=== PATIENT | male | born 1935 | race Caucasian/White ===

== ENCOUNTER 2023-07-16 13:05 | Observation (INO) ==
[2023-07-16] MEDS ORDERED: OPTIRAY 320 125ml IV ONE (13:12)
[2023-07-16] MEDS ORDERED: cefTRIAXone SODIUM 2,000 MG/50 ML BAG IV STA (13:19)
--- NOTE | 2023-07-16 13:22 | Emergency Department Note ---
Impression & Plan Hypoxia, Respiratory syncytial virus (RSV), Elevated troponin ED Provider Note NAME: GAMALIEL BROWN AGE: 87 SEX: M : 1935 ARRIVES VIA: Ambulance INFORMANT: Patient ED PROVIDER(S): Johnny Mercado DO CHIEF COMPLAINT: fall HPI: Patient is an 87-year-old male who presents to the ER following a mechanical fall. He went into the bathroom and he notes he was very weak and he just fell down. He did hit his head. He denies any loss consciousness. EMS was called, per EMS he was brought in as he was slightly confused and stroke alert was called. He does take Eliquis. He denies any headache or change in vision. No chest pain or shortness of breath. He does admit to a cough. No dysuria, urgency, or frequency. He denies any weakness or numbness in the arms or legs but notes he feels weak all over. He has been unable to get out of bed for the past 2 days as he felt so weak. ADDITIONAL HISTORY OBTAINED: Per HPI Chronic Medical/Social Conditions Affecting Care: Per HPI PAST MEDICAL HISTORY:See Below PAST SURGICAL HISTORY:See Below FAMILY HISTORY:See Below SOCIAL HISTORY:See Below HOME MEDICATIONS:See Below ALLERGIES:See Below VITALS:See Below PHYSICAL EXAMINATION: GENERAL: alert, well appearing, well nourished, no distress, non-toxic HEAD: normal cephalic, atraumatic EYE EXAM: normal conjunctiva, PERRL and EOM's grossly intact OROPHARYNX: no exudate, no erythema, lips, buccal mucosa, and tongue normal and mucous membranes are moist EARS: TMs clear b/l NECK: supple, no nuchal rigidity, no adenopathy, non-tender CHEST: stable to compression anteriorly and posteriorly LUNGS: clear to auscultation. Normal chest wall mechanics HEART: no murmurs, S1 normal and S2 normal ABDOMEN: abdomen soft, non-tender, normo-active bowel sounds, no masses, no rebound or guarding. PELVIS: stable to compression anteriorly and posteriorly BACK: Back is symmetrical on inspection and there is no deformity, no midline tenderness, no CVA tenderness. UPPER EXTREMITIES: full active and passive range of motion of all joints without tenderness to palpation LOWER EXTREMITIES: full active and passive range of motion of all joints without tenderness to palpation NEURO EXAM: Normal sensorium, cranial nerves II-XII intact, normal speech, no weakness of arms, no weakness of legs. GCS: 15. MEDICAL DECISION MAKING: Patient is an 87-year-old male who presents ER for the above-stated complaint. IV was established blood work is obtained. Stroke alert was called prior to arrival due to a fall and confusion but upon arrival he is completely oriented to person place or time. No focal deficit. Labs shows no significant leukocytosis. Mild anemia 12.7. Per report from EMS he was found to be febrile at 101. INR 1.2. He is taking Eliquis. BMP was unremarkable with exception of creatinine 1.5. He was hypoxic as well at 83 to 85% on room air. Placed on 3 L nasal cannula and titrated up. He was found to be RSV positive. Troponin was elevated at 50. Do favor this secondary to the hypoxia. CT angios of the head and neck were unremarkable. Questionable right basilar infiltrate patient was covered with IV antibiotics. Updated at bedside. Discussed the case with the hospitalist for further evaluation management treatment. Consults/Care Managements Discussions: Per [facility] Triage Nursing notes reviewed. Limited review of prior medical records performed Vital Signs: reviewed and remarkable for no significant abnormalities Differential diagnosis: Infection, dehydration, metabolic abnormality, hypo/hyperglycemia, electrolyte disturbance, anemia, hypoxia, cardiac sources, intracerebral event, toxicologic, neurologic, as well as other pathologies. ER treatment provided: See below Diagnostics interpreted by me include EKG and cardiac monitoring as listed below: -Cardiac Monitoring: An order was placed for continuous cardiac monitoring. The monitor shows a rate of 82 with sinus rhythm. -ECG: [none] -Laboratory studies:Interpreted by me as stated above in MDM and shown below. Imaging studies: Xrays: As interpreted by me: Portable AP upright 1 view of the chest shows no focal infiltrate CTs show: CT angio of the head and neck were negative per radiology Procedures:none Critical Care: I have personally spent 35 minutes of critical care time in the direct management of this patient. This includes bedside care, interpretation of diagnostic studies, and testing, discussion with consultants, patient, and family members, and other required patient management activities. This 35 minutes is in excess of all separately billable procedures. Past Med/Surg History Medical History (Updated 07/16/23 @ 16:37 by Johnny Mercado DO) Generalized weakness Social History Smoking Status: Former smoker Preferred Language: Vietnamese Feels Safe at Home: Yes Allergies Allergies Allergy/AdvReac Type Severity Reaction Status Date / Time Unable to Assess Allergy Unverified 07/16/23 14:10 Home Meds Home Medications Medication Instructions Recorded Confirmed apixaban 2.5 mg tablet (Eliquis) 0 mg PO BID 07/16/23 07/16/23 furosemide 20 mg tablet 20 mg PO DAILY 07/16/23 07/16/23 meloxicam 7.5 mg tablet 7.5 mg PO DAILY 07/16/23 07/16/23 metoprolol succinate 25 mg 25 mg PO DAILY 07/16/23 07/16/23 tablet,extended release 24 hr potassium chloride 20 mEq 20 meq PO DAILY 07/16/23 07/16/23 tablet,extended release(part/cryst) Results & Data (ED) Vital Signs Vital Signs - 24 hr 07/16/23 13:39 07/16/23 13:39 07/16/23 13:39 Temperature 37.3 C 37.3 C Temperature Source Oral Oral Pulse Rate 89 Respiratory Rate 16 Blood Pressure 186/111 H Blood Pressure Mean 136 Pulse Oximetry 98 Oxygen Delivery Method Nasal Cannula Nasal Cannula Oxygen Flow Rate 4 4 Sepsis Recent Fever Within 48 Hours Yes Sepsis New/Unexplained Change in Mental Status N/A Sepsis Action Taken by Nursing No Action Required 07/16/23 14:34 Temperature Temperature Source Pulse Rate Respiratory Rate Blood Pressure Blood Pressure Mean Pulse Oximetry 94 Oxygen Delivery Method Room Air Oxygen Flow Rate Sepsis Recent Fever Within 48 Hours Sepsis New/Unexplained Change in Mental Status Sepsis Action Taken by Nursing Laboratory Data 07/16/23 13:22 07/16/23 13:22 Lab Results 07/16/23 07/16/23 07/16/23 Range/Units 13:22 13:29 13:33 WBC 8.46 (4.8-10.8) K/ul RBC 3.84 L (4.70-6.10) M/uL Hgb 12.7 L (14.0-18.0) g/dl POC Hgb (14.0-18.0) g/dl Hct 38.1 L (42.0-52.0) % POC Hct (42-52) % MCV 99.2 (80.0-100.0) fL MCH 33.1 (25.0-34.0) pg MCHC 33.3 (32.0-36.0) g/dL RDW Std Deviation 48.6 H (36.4-46.3) fL RDW Coeff of Simone 13.3 (11.5-14.5) % Plt Count 132 (130-400) K/uL MPV 10.0 (9.4-12.4) fL Immature Gran % (Auto) 0.4 % Neut % (Auto) 89.8 % Lymph % (Auto) 1.4 % [place] % (Auto) 8.2 % Eos % (Auto) 0.0 % Baso % (Auto) 0.2 % Neut # (Auto) 7.60 H (1.40-6.50) K/uL Lymph # (Auto) 0.12 L (1.20-3.40) K/uL [place] # (Auto) 0.69 H (0.11-0.59) K/uL Eos # (Auto) 0.00 (0.00-0.50) K/uL Baso # (Auto) 0.02 (0.00-0.20) K/uL Immature Gran # (Auto) 0.03 (0.01-0.20) K/uL PT 13.2 H (9.0-12.0) Seconds INR 1.2 H (0.9-1.1) APTT 29 (21-31) Seconds PTT Ratio 1.0 POC Sodium (135-144) mmol/L Sodium 136 (136-145) mmol/L POC Potassium (3.3-5.0) mmol/L Potassium 4.1 (3.5-5.1) mmol/L POC Chloride (101-112) mmol/L Chloride 107 (98-107) mmol/L Carbon Dioxide 21 (21-32) mmol/L POC Total CO2 (24-31) mmol/L Anion Gap 8 (3-11) POC Anion Gap (16-25) mmol/L POC BUN (7-18) mg/dl BUN 40 H (6-23) mg/dl Creatinine 1.57 H (0.6-1.4) mg/dl POC Creatinine (0.6-1.3) mg/dl Est Cr Clr Drug Dosing 33.0 ml/min Est GFR ( Amer) 45.3 ml/min Est GFR (Non-Af Amer) 39.1 ml/min BUN/Creatinine Ratio 25.5 H (10-20) Glucose 109 H (70-99(Fasting)) mg/dl POC Glucose (other) (70-99) mg/dl Lactate 1.5 (0.4-2.0) mmol/L Calcium 8.3 L (8.6-10.3) mg/dl POC Ioniz Calcium Talia (1.12-1.32) mmol/l Magnesium 1.7 (1.7-2.4) mg/dl Total Bilirubin 1.0 (0.2-1.0) mg/dl AST 29 (13-39) U/L ALT 18 (7-52) U/L Alkaline Phosphatase 114 H (34-104) U/L Troponin I High Sens 49.3 H (0-20) pg/ml Total Protein 5.7 L (6.0-8.3) gm/dl Albumin 3.7 (3.4-5.0) gm/dl Globulin 2.0 L (2.5-4.0) gm/dl Albumin/Globulin Ratio 1.9 (0.9-2) Adenovirus (PCR) Not Detected (NotDetected) B. pertussis DNA (PCR) Not Detected (NotDetected) B.parapertussis DNA PCR Not Detected (NotDetected) C. pneumoniae DNA (PCR) Not Detected (NotDetected) Coronavirus OC43 (PCR) Not Detected (NotDetected) Coronavirus HKU1 (PCR) Not Detected (NotDetected) Coronavirus 229E (PCR) Not Detected (NotDetected) SARS-CoV-2 (PCR) Not Detected (NotDetected) Coronavirus NL63 (PCR) Not Detected (NotDetected) Human Metapneumovir PCR Not Detected (NotDetected) Influenza Type A (PCR) Not Detected (NotDetected) Influenza Type B (PCR) Not Detected (NotDetected) M. pneumoniae (PCR) Not Detected (NotDetected) Parainfluenza 1 (PCR) Not Detected (NotDetected) Parainfluenza 2 (PCR) Not Detected (NotDetected) Parainfluenza 3 (PCR) Not Detected (NotDetected) Parainfluenza 4 (PCR) Not Detected (NotDetected) RSV (PCR) DETECTED A* (NotDetected) Entero/Rhino (PCR) Not Detected (NotDetected) 07/16/23 Range/Units 13:36 WBC (4.8-10.8) K/ul RBC (4.70-6.10) M/uL Hgb (14.0-18.0) g/dl POC Hgb 12.6 L (14.0-18.0) g/dl Hct (42.0-52.0) % POC Hct 37 L (42-52) % MCV (80.0-100.0) fL MCH (25.0-34.0) pg MCHC (32.0-36.0) g/dL RDW Std Deviation (36.4-46.3) fL RDW Coeff of Simone (11.5-14.5) % Plt Count (130-400) K/uL MPV (9.4-12.4) fL Immature Gran % (Auto) % Neut % (Auto) % Lymph % (Auto) % [place] % (Auto) % Eos % (Auto) % Baso % (Auto) % Neut # (Auto) (1.40-6.50) K/uL Lymph # (Auto) (1.20-3.40) K/uL [place] # (Auto) (0.11-0.59) K/uL Eos # (Auto) (0.00-0.50) K/uL Baso # (Auto) (0.00-0.20) K/uL Immature Gran # (Auto) (0.01-0.20) K/uL PT (9.0-12.0) Seconds INR (0.9-1.1) APTT (21-31) Seconds PTT Ratio POC Sodium 138 (135-144) mmol/L Sodium (136-145) mmol/L POC Potassium 4.1 (3.3-5.0) mmol/L Potassium (3.5-5.1) mmol/L POC Chloride 105 (101-112) mmol/L Chloride (98-107) mmol/L Carbon Dioxide (21-32) mmol/L POC Total CO2 22 L (24-31) mmol/L Anion Gap (3-11) POC Anion Gap 16.0 (16-25) mmol/L POC BUN 36 H (7-18) mg/dl BUN (6-23) mg/dl Creatinine (0.6-1.4) mg/dl POC Creatinine 1.6 H (0.6-1.3) mg/dl Est Cr Clr Drug Dosing ml/min Est GFR ( Amer) ml/min Est GFR (Non-Af Amer) ml/min BUN/Creatinine Ratio (10-20) Glucose (70-99(Fasting)) mg/dl POC Glucose (other) 105 H (70-99) mg/dl Lactate (0.4-2.0) mmol/L Calcium (8.6-10.3) mg/dl POC Ioniz Calcium Talia 1.03 L (1.12-1.32) mmol/l Magnesium (1.7-2.4) mg/dl Total Bilirubin (0.2-1.0) mg/dl AST (13-39) U/L ALT (7-52) U/L Alkaline Phosphatase (34-104) U/L Troponin I High Sens (0-20) pg/ml Total Protein (6.0-8.3) gm/dl Albumin (3.4-5.0) gm/dl Globulin (2.5-4.0) gm/dl Albumin/Globulin Ratio (0.9-2) Adenovirus (PCR) (NotDetected) B. pertussis DNA (PCR) (NotDetected) B.parapertussis DNA PCR (NotDetected) C. pneumoniae DNA (PCR) (NotDetected) Coronavirus OC43 (PCR) (NotDetected) Coronavirus HKU1 (PCR) (NotDetected) Coronavirus 229E (PCR) (NotDetected) SARS-CoV-2 (PCR) (NotDetected) Coronavirus NL63 (PCR) (NotDetected) Human Metapneumovir PCR (NotDetected) Influenza Type A (PCR) (NotDetected) Influenza Type B (PCR) (NotDetected) M. pneumoniae (PCR) (NotDetected) Parainfluenza 1 (PCR) (NotDetected) Parainfluenza 2 (PCR) (NotDetected) Parainfluenza 3 (PCR) (NotDetected) Parainfluenza 4 (PCR) (NotDetected) RSV (PCR) (NotDetected) Entero/Rhino (PCR) (NotDetected) Administered Medications Discontinued Medications Sodium Chloride (Nss) 1,000 mls @ 999 mls/hr IV .[id number] RENAE Stop: 07/16/23 15:00 Last Infusion: 07/16/23 16:20 Dose: Infused Documented By: Admin: 07/16/23 14:02 Dose: 999 mls/hr Documented By: Infusion: 07/16/23 14:02 Dose: Infused Documented By: Admin: 07/16/23 13:56 Dose: 999 mls/hr Documented By: BRAYDEN Ceftriaxone Sodium (Rocephin) 2,000 mg in 50 mls @ 100 mls/hr IV NOW STA Stop: 07/16/23 13:48 Last Infusion: 07/16/23 16:20 Dose: Infused Documented By: KTSydni Admin: 07/16/23 13:56 Dose: 100 mls/hr Documented By: BRAYDEN Azithromycin 500 mg/ Dextrose 255 mls @ 127.5 mls/hr IV NOW STA Stop: 07/16/23 15:55 Last Infusion: 07/16/23 16:20 Dose: Infused Documented By: Admin: 07/16/23 14:13 Dose: 127.5 mls/hr Documented By: BRAYDEN Ioversol (Optiray 320 125ml) 117 ml IV ONCE ONE Stop: 07/16/23 13:13 Last Admin: 07/16/23 13:13 Dose: 117 ml Documented By: ISABELA Imaging Data Radiologist's Impression: Chest X-Ray 07/16/23 12:48 XR chest 1V portable HISTORY: 87 years-old Male neuro deficit, acute stroke suspected acute strokelike symptoms with chest pain COMPARISON: None TECHNIQUE: AP view of the chest FINDINGS: Cardiac silhouette is enlarged. Single lead left subclavian pacer. No pneumothorax, or pleural effusion. Pulmonary vascular congestion with subsegmental right basilar opacities. Bones appear grossly intact. IMPRESSION: 1. Cardiomegaly with pulmonary vascular congestion. 2. Mild right basilar opacities favor atelectasis. ACT 112: Negative or not required by law. The above report was generated using voice recognition software. It may contain grammatical, syntax or spelling errors. Electronically signed by: Brennon Holguin M.D. 07/16/2023 1:[address] 07/16/23 12:48 CT angio head w con, CT angio neck with con, CT head/brain wo con CLINICAL HISTORY: 87 years-old Male with neuro deficit, acute stroke suspected. Acute stroke like symptoms COMPARISON STUDY: None TECHNIQUE: Unenhanced axial CT scan of the brain is performed. Subsequently, following the IV administration of 117 cc of Optiray, CT angiogram of the head and neck was performed from the aortic arch to the skull apex. Images are reviewed in the axial, sagittal, and coronal planes. 3-D MIPS images are created and assessed. IV contrast was administered without complication. All measurements were obtained according to NASCET criteria. A dose lowering technique was utilized adhering to the principles of ALARA. FINDINGS: Motion degraded exam. CT BRAIN: There is no acute intracranial hemorrhage, midline shift, hydrocephalus, intracranial mass, territorial ischemia or abnormal extra-axial collections. No abnormal intra-axial or extra-axial enhancement. Involutional changes with white matter hypodensities suggestive of chronic microvascular ischemic disease . Mastoid air cells and middle ear cavities are clear. No calvarial fracture. Mild mucosal thickening of the paranasal sinuses. CT ANGIOGRAM OF THE HEAD AND NECK: Left subclavian pacer. Three-vessel morphology of the thoracic aortic arch. Patency of the innominate and image subclavian arteries. The common carotid arteries are patent. Atherosclerotic plaque of the carotid bulbs without significant stenosis. The internal carotid arteries are widely patent. The bilateral anterior and middle cerebral arteries are also patent. The vertebrobasilar system and posterior cerebral arteries are widely patent. There is a mild multifocal luminal narrowing of the intracranial arteries. There is no aneurysm, high-grade stenosis, or proximal branch occlusion identified. Dural sinuses appear patent. Prior bilateral lens repair. The lung apices are generally clear without pneumothorax. Heterogeneous thyroid. Multilevel changes of the cervical spine. Periapical cystic changes of the mandible. The patient has numerous missing teeth. IMPRESSION: 1. No acute intracranial abnormality identified. 2. Atherosclerosis without aneurysm, high-grade stenosis, dissection or arterial occlusion identified. ACT 112: Negative or not required by law. The above report was generated using voice recognition software. It may contain grammatical, syntax or spelling errors. Electronically signed by: Brennon Holguin M.D. 07/16/2023 1:31 PM Head CTA 07/16/23 12:48 CT angio head w con, CT angio neck with con, CT head/brain wo con CLINICAL HISTORY: 87 years-old Male with neuro deficit, acute stroke suspected. Acute stroke like symptoms COMPARISON STUDY: None TECHNIQUE: Unenhanced axial CT scan of the brain is performed. Subsequently, following the IV administration of 117 cc of Optiray, CT angiogram of the head and neck was performed from the aortic arch to the skull apex. Images are reviewed in the axial, sagittal, and coronal planes. 3-D MIPS images are created and assessed. IV contrast was administered without complication. All measurements were obtained according to NASCET criteria. A dose lowering technique was utilized adhering to the principles of ALARA. FINDINGS: Motion degraded exam. CT BRAIN: There is no acute intracranial hemorrhage, midline shift, hydrocephalus, intracranial mass, territorial ischemia or abnormal extra-axial collections. No abnormal intra-axial or extra-axial enhancement. Involutional changes with white matter hypodensities suggestive of chronic microvascular ischemic disease . Mastoid air cells and middle ear cavities are clear. No calvarial fracture. Mild mucosal thickening of the paranasal sinuses. CT ANGIOGRAM OF THE HEAD AND NECK: Left subclavian pacer. Three-vessel morphology of the thoracic aortic arch. Patency of the innominate and image subclavian arteries. The common carotid arteries are patent. Atherosclerotic plaque of the carotid bulbs without significant stenosis. The internal carotid arteries are widely patent. The bilateral anterior and middle cerebral arteries are also patent. The vertebrobasilar system and posterior cerebral arteries are widely patent. There is a mild multifocal luminal narrowing of the intracranial arteries. There is no aneurysm, high-grade stenosis, or proximal branch occlusion identified. Dural sinuses appear patent. Prior bilateral lens repair. The lung apices are generally clear without pneumothorax. Heterogeneous thyroid. Multilevel changes of the cervical spine. Periapical cystic changes of the mandible. The patient has numerous missing teeth. IMPRESSION: 1. No acute intracranial abnormality identified. 2. Atherosclerosis without aneurysm, high-grade stenosis, dissection or arterial occlusion identified. ACT 112: Negative or not required by law. The above report was generated using voice recognition software. It may contain grammatical, syntax or spelling errors. Electronically signed by: Brennon Holguin M.D. 07/16/2023 1:31 PM Neck CTA 07/16/23 12:48 CT angio head w con, CT angio neck with con, CT head/brain wo con CLINICAL HISTORY: 87 years-old Male with neuro deficit, acute stroke suspected. Acute stroke like symptoms COMPARISON STUDY: None TECHNIQUE: Unenhanced axial CT scan of the brain is performed. Subsequently, following the IV administration of 117 cc of Optiray, CT angiogram of the head and neck was performed from the aortic arch to the skull apex. Images are reviewed in the axial, sagittal, and coronal planes. 3-D MIPS images are created and assessed. IV contrast was administered without complication. All measurements were obtained according to NASCET criteria. A dose lowering technique was utilized adhering to the principles of ALARA. FINDINGS: Motion degraded exam. CT BRAIN: There is no acute intracranial hemorrhage, midline shift, hydrocephalus, intracranial mass, territorial ischemia or abnormal extra-axial collections. No abnormal intra-axial or extra-axial enhancement. Involutional changes with white matter hypodensities suggestive of chronic microvascular ischemic disease . Mastoid air cells and middle ear cavities are clear. No calvarial fracture. Mild mucosal thickening of the paranasal sinuses. CT ANGIOGRAM OF THE HEAD AND NECK: Left subclavian pacer. Three-vessel morphology of the thoracic aortic arch. Patency of the innominate and image subclavian arteries. The common carotid arteries are patent. Atherosclerotic plaque of the carotid bulbs without significant stenosis. The internal carotid arteries are widely patent. The bilateral anterior and middle cerebral arteries are also patent. The vertebrobasilar system and posterior cerebral arteries are widely patent. There is a mild multifocal luminal narrowing of the intracranial arteries. There is no aneurysm, high-grade stenosis, or proximal branch occlusion identified. Dural sinuses appear patent. Prior bilateral lens repair. The lung apices are generally clear without pneumothorax. Heterogeneous thyroid. Multilevel changes of the cervical spine. Periapical cystic changes of the mandible. The patient has numerous missing teeth. IMPRESSION: 1. No acute intracranial abnormality identified. 2. Atherosclerosis without aneurysm, high-grade stenosis, dissection or arterial occlusion identified. ACT 112: Negative or not required by law. The above report was generated using voice recognition software. It may contain grammatical, syntax or spelling errors. Electronically signed by: Brennon Holguin M.D. 07/16/2023 1:31 PM Discharge Plan Visit Data Chief Complaint: Stroke Alert ED Provider: Johnny Mercado Discharge Problem: Hypoxia, Respiratory syncytial virus (RSV), Elevated troponin Forms Stand Alone Forms: My [facility] Prescriptions Prescriptions: No Action meloxicam 7.5 mg tablet 7.5 mg PO DAILY potassium chloride 20 mEq tablet,ER particles/crystals 20 meq PO DAILY furosemide 20 mg tablet 20 mg PO DAILY metoprolol succinate 25 mg tablet extended release 24 hr 25 mg PO DAILY Eliquis 2.5 mg tablet 0 mg PO BID Rx Instructions: Per Pharmacist w/ preferred pharmacy, patient last filled this on 05/20/23 x30 day supply. No discontinue notes from PCP. Original directions: 2.5mg by mouth twice daily Referrals Referrals: PCP,NO [Physician] -
--- NOTE | 2023-07-16 13:34 | CT Scan Report ---
CT angio head w con, CT angio neck with con, CT head/brain wo con CLINICAL HISTORY: 87 years-old Male with neuro deficit, acute stroke suspected. Acute stroke like symptoms COMPARISON STUDY: None TECHNIQUE: Unenhanced axial CT scan of the brain is performed. Subsequently, following the IV adminis tration of 117 cc of Optiray, CT angiogram of the head and neck was performed from the aortic arch to the skull apex. Images are reviewed in the axial, sagittal, and coronal planes. 3-D MIPS images are created and assessed. IV contrast was administered without complication. All measurements were obtain ed according to NASCET criteria. A dose lowering technique was utilized adhering to the principles of ALARA. FINDINGS: Motion degraded exam. CT BRAIN: There is no acute intracranial hemorrhage, midline shift, hydrocephalus, intracranial mass, territori al ischemia or abnormal extra-axial collections. No abnormal intra-axial or extra-axial enhancement. Involutional changes with white matter hypodensities suggestive of chronic microvascular ischemic dis ease . Mastoid air cells and middle ear cavities are clear. No calvarial fracture. Mild mucosal thick ening of the paranasal sinuses. CT ANGIOGRAM OF THE HEAD AND NECK: Left subclavian pacer. Three-vessel morphology of the thoracic aortic arch. Patency of the innominate and image subclavian arteries. The common carotid arteries are patent. Atherosclerotic plaque of the carotid bulbs without significant stenosis. The internal carotid arteries are widely patent. The mei ateral anterior and middle cerebral arteries are also patent. The vertebrobasilar system and posterio r cerebral arteries are widely patent. There is a mild multifocal luminal narrowing of the intracrani al arteries. There is no aneurysm, high-grade stenosis, or proximal branch occlusion identified. Dura l sinuses appear patent. Prior bilateral lens repair. The lung apices are generally clear without pneumothorax. Heterogeneous thyroid. Multilevel changes of the cervical spine. Periapical cystic changes of the mandible. The pat ient has numerous missing teeth. IMPRESSION: 1. No acute intracranial abnormality identified. 2. Atherosclerosis without aneurysm, high-grade stenosis, dissection or arterial occlusion identified . ACT 112: Negative or not required by law. The above report was generated using voice recognition software. It may contain grammatical, syntax o r spelling errors. Electronically signed by: Brennon Holguin M.D. 07/16/2023 1:31 PM
[2023-07-16 13:40] LABS: Basophils # (auto) 0.02 K/uL (0.00-0.20); Basophils % (auto) 0.2 %; Hematocrit (blood only) 38.1 % (42.0-52.0); Hemoglobin 12.7 g/dl (14.0-18.0); Immature Granulocytes # (auto) 0.03 K/uL (0.01-0.20); Immature Granulocytes % (auto) 0.4 %; Lymphocytes # (auto) 0.12 K/uL (1.20-3.40); Lymphocytes % (auto) 1.4 %; Mean Corpuscular Hemoglobin 33.1 pg (25.0-34.0); Mean Corpuscular Hgb Conc 33.3 g/dL (32.0-36.0); Mean Corpuscular Volume 99.2 fL (80.0-100.0); Monocytes # (auto) 0.69 K/uL (0.11-0.59); Monocytes % (auto) 8.2 %; Neutrophils % (auto) 89.8 %; Platelet Count 132 K/uL (130-400); RDW Coefficient of Variation 13.3 % (11.5-14.5); RDW Standard Deviation 48.6 fL (36.4-46.3); Red Blood Count 3.84 M/uL (4.70-6.10); White Blood Count 8.46 K/ul (4.8-10.8)
[2023-07-16 13:48] LABS: iSTAT Creatinine 1.6 mg/dl (0.6-1.3); iSTAT Hemoglobin 12.6 g/dl (14.0-18.0); iSTAT Ionized Calcium 1.03 mmol/l (1.12-1.32); iSTAT Potassium 4.1 mmol/L (3.3-5.0)
[2023-07-16 13:52] LABS: INR 1.2 (0.9-1.1); Partial Thromboplastin Time 29 Seconds (21-31); Prothrombin Time 13.2 Seconds (9.0-12.0)
--- NOTE | 2023-07-16 13:52 | XRay Report ---
XR chest 1V portable HISTORY: 87 years-old Male neuro deficit, acute stroke suspected acute strokelike symptoms with ches t pain COMPARISON: None TECHNIQUE: AP view of the chest FINDINGS: Cardiac silhouette is enlarged. Single lead left subclavian pacer. No pneumothorax, or pleural effusi on. Pulmonary vascular congestion with subsegmental right basilar opacities. Bones appear grossly int act. IMPRESSION: 1. Cardiomegaly with pulmonary vascular congestion. 2. Mild right basilar opacities favor atelectasis. ACT 112: Negative or not required by law. The above report was generated using voice recognition software. It may contain grammatical, syntax o r spelling errors. Electronically signed by: Brennon Holguin M.D. 07/16/2023 1:51 PM
[2023-07-16] MEDS ORDERED: AZITHROMYCIN 500 MG in DEXTROSE 5% 250 ML IV STA (13:56)
[2023-07-16] MEDS: SODIUM CHLORIDE 0.9% 1,000 ML IV SCH ×2 (13:56→14:02)
[2023-07-16 14:01] LABS: Albumin Globulin Ratio 1.9 (0.9-2); Albumin Level 3.7 gm/dl (3.4-5.0); BUN Creatinine Ratio 25.5 (10-20); Calcium 8.3 mg/dl (8.6-10.3); Est GFR (African American) 45.3 ml/min; Est GFR (Non-African American) 39.1 ml/min; Magnesium 1.7 mg/dl (1.7-2.4); Potassium 4.1 mmol/L (3.5-5.1); Total Protein 5.7 gm/dl (6.0-8.3)
[2023-07-16 14:08] LABS: Troponin I High Sensitivity 49.3 pg/ml (0-20)
[2023-07-16 15:05] LABS: Adenovirus PCR Not Detected (NotDetected); Bordetella parapertussis PCR Not Detected (NotDetected); Bordetella pertussis PCR Not Detected (NotDetected); Chlamydia pneumoniae PCR Not Detected (NotDetected); Coronavirus 229E PCR Not Detected (NotDetected); Coronavirus CoV-2 (COVID19)PCR Not Detected (NotDetected); Coronavirus HKU1 PCR Not Detected (NotDetected); Coronavirus NL63 PCR Not Detected (NotDetected); Coronavirus OC43PCR Not Detected (NotDetected); Human Metapneumovirus PCR Not Detected (NotDetected); Influenza A PCR Not Detected (NotDetected); Influenza B PCR Not Detected (NotDetected); Mycoplasma pneumoniae PCR Not Detected (NotDetected); Parainfluenza Virus 1 PCR Not Detected (NotDetected); Parainfluenza Virus 2 PCR Not Detected (NotDetected); Parainfluenza Virus 3 PCR Not Detected (NotDetected); Parainfluenza Virus 4 PCR Not Detected (NotDetected); Rhinovirus/Enterovirus PCR Not Detected (NotDetected)
[2023-07-16 15:24] LABS: Respiratory Syncytial VirusPCR DETECTED (NotDetected)
--- NOTE | 2023-07-16 15:46 | History & Physical Report ---
Date of Service July 16, 2023 Assessment & Plan (1) Respiratory syncytial virus (RSV): (2) Slurred speech: (3) Generalized weakness: (4) Elevated troponin: (5) Hypoxia: Plan Mr. Méndez is an 87-year-old male that presented to the ED today after his family noticed that he was having some slurred speech and altered mental status. Today he fell in the shower and hit his head on the left side. He has been progressively getting weaker and short of breath over the past few days. He has had notable cough.Chest x-ray revealed mild right opacities in the setting of suspected atelectasis. Head CT negative for SDH, ICH or midline shift. Head neck CTA revealed atherosclerosis without aneurysm, stenosis dissection or aortic occlusion. Patient tested positive for RSV. No leukocytosis, lactate 1.5, ionized calcium 1.03, calcium 8.3, mag 1.7, troponin 49.3; recheck at 53 and will continue to trend. Do not suspect that this is related to an ACS event rather ischemic demand. Additional past medical history includes HTN and A-fib. Of note this patient follows infrequently with a PCP and likely has progressive weakness and noncompliance with medications. Patient denies headache, dizziness, visual or auditory changes, chest pain, palpitations, abdominal pain or tenderness, changes in bowels, additional falls or trauma. On exam patient without wheezes however is rhonchitic throughout. Patient is AAO x 2 however is unable to discern his medical ailments. at bedside and family at bedside confirmed full CODE STATUS. No alcohol, tobacco, recreational drug use. 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 Will continue workup for stroke with MRI of the brain, dizziness with Ortho BPs, supportive treatment of RSV with IV steroids, Mucinex, sputum culture, flutter valve, incentive spirometry, gentle IV fluids. Will continue to trend troponin and obtain new baseline echo. Will obtain urinalysis as patient was having hematuria; low threshold for patient having UTI which may be a contributing cause to AMS. RSV: Hypoxia: Acute RSV + via biofire No leukocytosis Given ceftriaxone plus azithromycin in ED; no need to continue antibiotics at this time Solu-Medrol IV ordered Flutter valve and incentive spirometry ordered Mucinex ordered Check procalcitonin and magnesium Obtain blood and sputum culture AMS: Slurred Speech: Generalized weakness: acute Head CT negative for SDH, ICH or midline shift. Head neck CTA revealed atherosclerosis without aneurysm, stenosis dissection or aortic occlusion. Will obtain UA Lactate 1.5 Repeat echocardiogram Ortho BP Elevated troponin: Acute Troponin 49.3; repeat 53; continue to trend. Do not suspect ACS or other ischemic demand Atrial Fibrillation: Chronic Takes Eliquis; continue Takes Metoprolol; continue Takes Lasix; continue Disposition: PCP: unassigned Code Status: Full code VTE Prophylaxis: On Eliquis I spent a total of 87 minutes coordinating, documenting, and providing care for this patient excluding time spent in the performance of separately billed services. All of the aforementioned completed while collaborating with the assigned attending physician for a full treatment plan. Please see their addendum for further details. History of Present Illness Chief Complaint: weakness Primary Care Provider: Elijah Soni Mr. Méndez is an 87-year-old male that presented to the ED today after his family noticed that he was having some slurred speech and altered mental status. Today he fell in the shower and hit his head on the left side. He has been progressively getting weaker and short of breath over the past few days. He has had notable cough. Chest x-ray revealed mild right opacities in the setting of suspected atelectasis. Head CT negative for SDH, ICH or midline shift. Head neck CTA revealed atherosclerosis without aneurysm, stenosis dissection or aortic occlusion. Patient tested positive for RSV. No leukocytosis, lactate 1.5, ionized calcium 1.03, calcium 8.3, mag 1.7, troponin 49.3; recheck at 53 and will continue to trend. Do not suspect that this is related to an ACS event rather ischemic demand. Additional past medical history includes HTN and A-fib. Of note this patient follows infrequently with a PCP and likely has progressive weakness and noncompliance with medications. Patient denies headache, dizziness, visual or auditory changes, chest pain, palpitations, abdominal pain or tenderness, changes in bowels, additional falls or trauma. On exam patient without wheezes however is rhonchitic throughout. Patient is AAO x 2 however is unable to discern his medical ailments. at bedside and family at bedside confirmed full CODE STATUS. No alcohol, tobacco, recreational drug use. 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 Will continue workup for stroke with MRI of the brain, dizziness with Ortho BPs, supportive treatment of RSV with IV steroids, Mucinex, sputum culture, flutter valve, incentive spirometry, gentle IV fluids. Will continue to trend troponin and obtain new baseline echo. Will obtain urinalysis as patient was having hematuria; low threshold for patient having UTI which may be a contributing cause to AMS. Patient will be admitted for further evaluation and management. Please see A/P for further details Allergies Allergy/AdvReac Type Severity Reaction Status Date / Time Unable to Assess Allergy Unverified 07/16/23 14:10 Home Medications Medication Instructions Recorded Confirmed Type apixaban 2.5 mg tablet (Eliquis) 0 mg PO BID 07/16/23 07/16/23 History furosemide 20 mg tablet 20 mg PO DAILY 07/16/23 07/16/23 History meloxicam 7.5 mg tablet 7.5 mg PO DAILY 07/16/23 07/16/23 History metoprolol succinate 25 mg 25 mg PO DAILY 07/16/23 07/16/23 History tablet,extended release 24 hr potassium chloride 20 mEq 20 meq PO DAILY 07/16/23 07/16/23 History tablet,extended release(part/cryst) Past Med/Surg History Medical History (Updated 07/16/23 @ 20:46 by Bryant Wagner PA-C) Slurred speech Generalized weakness Surgical History (Updated 07/16/23 @ 20:25 by TATE Blair) No pertinent past surgical history Family History (Updated 07/16/23 @ 20:25 by TATE Blair) Other Dyslipidemia Heart disease Hypertension Social History Smoking Status: Former smoker Preferred Language: Vietnamese Feels Safe at Home: Yes Review of Systems Review of Systems: Neuro: (-) Falls, trauma, slurred speech HEENT: (-) ABDI, dizziness, dysphagia, visual or auditory changes CV: (-) CP, palpitations, swelling Resp: (-) SOB GI: (-) appetite changes, N/V/D, bowel changes : (-) urinary changes Skin: (-) rashes Psych: (-) anxiety, depression Physical Exam Physical Exam: Neuro: AAOx2, PERRLA, no aphagia, memory changes, CNII-XII grossly intact HEENT: head normocephalic, moist mucus membranes CV: S1/S2, (-) M/G/R, (-) edema, cap refill < 3 seconds Resp: Lungs CTA in all allen. On 4 LNC; rhonchitic throughout. GI: Abdomen S/NT/ND, Ax4 bowel sounds, (-) CVA tenderness Musculoskeletal: 5/5 B/L UE strength, 5/5 B/L LE strength. No gait disturbance; however, R foot deformity Skin: (-) rashes , (-) erythema (+) ecchymosis on bilateral arms. Psych: euthymic mood Results & Data Results & Data Vital Signs (Past 12 Hours) Vital Signs Temp Pulse Resp BP Pulse Ox O2 Del Method O2 Flow Rate 07/16/23 14:34 94 Room Air 07/16/23 13:39 37.3 C 07/16/23 13:39 Nasal Cannula 4 07/16/23 13:39 37.3 C 89 16 186/111 H 98 Nasal Cannula 4 Laboratory Results Short CBC 07/16/23 Range/Units 13:22 WBC 8.46 (4.8-10.8) K/ul Hgb 12.7 L (14.0-18.0) g/dl Hct 38.1 L (42.0-52.0) % Plt Count 132 (130-400) K/uL BMP 07/16/23 13:22 Sodium 136 Potassium 4.1 Chloride 107 Carbon Dioxide 21 BUN 40 H Creatinine 1.57 H Glucose 109 H Calcium 8.3 L Liver Function 07/16/23 Range/Units 13:22 Total Bilirubin 1.0 (0.2-1.0) mg/dl AST 29 (13-39) U/L ALT 18 (7-52) U/L Alkaline Phosphatase 114 H (34-104) U/L Albumin 3.7 (3.4-5.0) gm/dl Diagnostic Findings Chest X-Ray 07/16/23 12:48 XR chest 1V portable HISTORY: 87 years-old Male neuro deficit, acute stroke suspected acute strokelike symptoms with chest pain COMPARISON: None TECHNIQUE: AP view of the chest FINDINGS: Cardiac silhouette is enlarged. Single lead left subclavian pacer. No pneumothorax, or pleural effusion. Pulmonary vascular congestion with subsegmental right basilar opacities. Bones appear grossly intact. IMPRESSION: 1. Cardiomegaly with pulmonary vascular congestion. 2. Mild right basilar opacities favor atelectasis. ACT 112: Negative or not required by law. The above report was generated using voice recognition software. It may contain grammatical, syntax or spelling errors. Electronically signed by: Brennon Holguin M.D. 07/16/2023 1:[address] 07/16/23 12:48 CT angio head w con, CT angio neck with con, CT head/brain wo con CLINICAL HISTORY: 87 years-old Male with neuro deficit, acute stroke suspected. Acute stroke like symptoms COMPARISON STUDY: None TECHNIQUE: Unenhanced axial CT scan of the brain is performed. Subsequently, following the IV administration of 117 cc of Optiray, CT angiogram of the head and neck was performed from the aortic arch to the skull apex. Images are reviewed in the axial, sagittal, and coronal planes. 3-D MIPS images are created and assessed. IV contrast was administered without complication. All measurements were obtained according to NASCET criteria. A dose lowering technique was utilized adhering to the principles of ALARA. FINDINGS: Motion degraded exam. CT BRAIN: There is no acute intracranial hemorrhage, midline shift, hydrocephalus, intracranial mass, territorial ischemia or abnormal extra-axial collections. No abnormal intra-axial or extra-axial enhancement. Involutional changes with white matter hypodensities suggestive of chronic microvascular ischemic disease . Mastoid air cells and middle ear cavities are clear. No calvarial fracture. Mild mucosal thickening of the paranasal sinuses. CT ANGIOGRAM OF THE HEAD AND NECK: Left subclavian pacer. Three-vessel morphology of the thoracic aortic arch. Patency of the innominate and image subclavian arteries. The common carotid arteries are patent. Atherosclerotic plaque of the carotid bulbs without significant stenosis. The internal carotid arteries are widely patent. The bilateral anterior and middle cerebral arteries are also patent. The vertebrobasilar system and posterior cerebral arteries are widely patent. There is a mild multifocal luminal narrowing of the intracranial arteries. There is no aneurysm, high-grade stenosis, or proximal branch occlusion identified. Dural sinuses appear patent. Prior bilateral lens repair. The lung apices are generally clear without pneumothorax. Heterogeneous thyroid. Multilevel changes of the cervical spine. Periapical cystic changes of the mandible. The patient has numerous missing teeth. IMPRESSION: 1. No acute intracranial abnormality identified. 2. Atherosclerosis without aneurysm, high-grade stenosis, dissection or arterial occlusion identified. ACT 112: Negative or not required by law. The above report was generated using voice recognition software. It may contain grammatical, syntax or spelling errors. Electronically signed by: Brennon Holguin M.D. 07/16/2023 1:31 PM Head CTA 07/16/23 12:48 CT angio head w con, CT angio neck with con, CT head/brain wo con CLINICAL HISTORY: 87 years-old Male with neuro deficit, acute stroke suspected. Acute stroke like symptoms COMPARISON STUDY: None TECHNIQUE: Unenhanced axial CT scan of the brain is performed. Subsequently, following the IV administration of 117 cc of Optiray, CT angiogram of the head and neck was performed from the aortic arch to the skull apex. Images are reviewed in the axial, sagittal, and coronal planes. 3-D MIPS images are created and assessed. IV contrast was administered without complication. All measurements were obtained according to NASCET criteria. A dose lowering technique was utilized adhering to the principles of ALARA. FINDINGS: Motion degraded exam. CT BRAIN: There is no acute intracranial hemorrhage, midline shift, hydrocephalus, intracranial mass, territorial ischemia or abnormal extra-axial collections. No abnormal intra-axial or extra-axial enhancement. Involutional changes with white matter hypodensities suggestive of chronic microvascular ischemic disease . Mastoid air cells and middle ear cavities are clear. No calvarial fracture. Mild mucosal thickening of the paranasal sinuses. CT ANGIOGRAM OF THE HEAD AND NECK: Left subclavian pacer. Three-vessel morphology of the thoracic aortic arch. Patency of the innominate and image subclavian arteries. The common carotid arteries are patent. Atherosclerotic plaque of the carotid bulbs without significant stenosis. The internal carotid arteries are widely patent. The bilateral anterior and middle cerebral arteries are also patent. The vertebrobasilar system and posterior cerebral arteries are widely patent. There is a mild multifocal luminal narrowing of the intracranial arteries. There is no aneurysm, high-grade stenosis, or proximal branch occlusion identified. Dural sinuses appear patent. Prior bilateral lens repair. The lung apices are generally clear without pneumothorax. Heterogeneous thyroid. Multilevel changes of the cervical spine. Periapical cystic changes of the mandible. The patient has numerous missing teeth. IMPRESSION: 1. No acute intracranial abnormality identified. 2. Atherosclerosis without aneurysm, high-grade stenosis, dissection or arterial occlusion identified. ACT 112: Negative or not required by law. The above report was generated using voice recognition software. It may contain grammatical, syntax or spelling errors. Electronically signed by: Brennon Holguin M.D. 07/16/2023 1:31 PM Neck CTA 07/16/23 12:48 CT angio head w con, CT angio neck with con, CT head/brain wo con CLINICAL HISTORY: 87 years-old Male with neuro deficit, acute stroke suspected. Acute stroke like symptoms COMPARISON STUDY: None TECHNIQUE: Unenhanced axial CT scan of the brain is performed. Subsequently, following the IV administration of 117 cc of Optiray, CT angiogram of the head and neck was performed from the aortic arch to the skull apex. Images are reviewed in the axial, sagittal, and coronal planes. 3-D MIPS images are created and assessed. IV contrast was administered without complication. All measurements were obtained according to NASCET criteria. A dose lowering technique was utilized adhering to the principles of ALARA. FINDINGS: Motion degraded exam. CT BRAIN: There is no acute intracranial hemorrhage, midline shift, hydrocephalus, intracr anial mass, territorial ischemia or abnormal extra-axial collections. No abnormal intra-axial or extra-axial enhancement. Involutional changes with white matter hypodensities suggestive of chronic microvascular ischemic disease . Mastoid air cells and middle ear cavities are clear. No calvarial fracture. Mild mucosal thickening of the paranasal sinuses. CT ANGIOGRAM OF THE HEAD AND NECK: Left subclavian pacer. Three-vessel morphology of the thoracic aortic arch. Patency of the innominate and image subclavian arteries. The common carotid arteries are patent. Atherosclerotic plaque of the carotid bulbs without significant stenosis. The internal carotid arteries are widely patent. The bilateral anterior and middle cerebral arteries are also patent. The vertebrobasilar system and posterior cerebral arteries are widely patent. There is a mild multifocal luminal narrowing of the intracranial arteries. There is no aneurysm, high-grade stenosis, or proximal branch occlusion identified. Dural sinuses appear patent. Prior bilateral lens repair. The lung apices are generally clear without pneumothorax. Heterogeneous thyroid. Multilevel changes of the cervical spine. Periapical cystic changes of the mandible. The patient has numerous missing teeth. IMPRESSION: 1. No acute intracranial abnormality identified. 2. Atherosclerosis without aneurysm, high-grade stenosis, dissection or arterial occlusion identified. ACT 112: Negative or not required by law. The above report was generated using voice recognition software. It may contain grammatical, syntax or spelling errors. Electronically signed by: Brennon Holguin M.D. 07/16/2023 1:31 PM Code Status & VTE Plan Code Status Full Code in the event of cardiac or respiratory arrest VTE Prophylaxis Plan VTE Prophylaxis will be ordered: Yes Supervising Physician Co-Signing Physician Notes Patient is an 87-year-old male with history of atrial fibrillation on chronic anticoagulation with Eliquis, hypertension and other medical problems presents with history of change in mental status, slurred speech generalized weakness resulting in fall while in the shower today. Patient also reports having cough for the last few days. Denies any significant dyspnea. Please review HPI for complete details of presentation. Personally reviewed blood work. Creatinine noted to be 1.5, troponin elevated four 9.3, normal procalcitonin, hemoglobin 4.7. Urinalysis pending. BioFire positive for RSV. CT head, CTA head and neck showed no acute process. MRI brain currently pending. EKG showed ventricular paced rhythm, QTc 535. On exam patient is thin, frail, elderly, no apparent distress, normocephalic atraumatic, EOMI, decreased breath sounds, clear to auscultation, no accessory muscle use, S1-S2, no murmur, abdomen soft, nontender, normal bowel sounds, alert, awake, seem to be oriented, grossly no focal deficits, right greater than left lower extremity edema noted.+ Slurred speech. Patient is admitted for management of hypoxia secondary to RSV and possible CVA. Agree with IV Solu-Medrol, pulmonary hygiene. Supplemental oxygen as needed. Will obtain MRI brain and echo for complete workup to rule out CVA. PT OT, fall precautions. Hypertensive urgency--hydralazine as needed. Continue home medications. Will consider neurology evaluation if needed. I personally reviewed the record. Patient is interviewed and examined at bedside. Patient's care is coordinated with Suma YBARRA. Please refer to the documentation above for details of patient's presentation and for discussion of other issues.
[2023-07-16 17:47] LABS: Troponin I High Sensitivity 53.1 pg/ml (0-20)
[2023-07-16] MEDS ORDERED: ACETAMINOPHEN 325 MG TAB PO PRN (17:55)
[2023-07-16] MEDS ORDERED: POLYETHYLENE (MIRALAX) 17 GM PACK PO PRN (17:55)
[2023-07-16] MEDS ORDERED: ONDANSETRON INJ 2 MG/ML 2 ML VIAL IV PRN (17:55)
[2023-07-16] MEDS ORDERED: MAGNESIUM HYDROXIDE SUSP 30 ML UDC PO PRN (17:55)
[2023-07-16] MEDS ORDERED: ALUMINUM/MAGNESIUM SUSP 30 ML UDC PO PRN (17:55)
[2023-07-16] MEDS: methylPREDNISolone 20 MG in SYRINGE 0 ML IV SCH (18:36)
[2023-07-16] MEDS ORDERED: hydrALAZINE HCL 20 MG/ML VIAL IV PRN (20:40)
--- NOTE | 2023-07-16 20:48 | Urology Consultation ---
Date of Consultation July 16, 2023 Assessment & Plan (1) Hematuria: The patient has been admitted on the hospital service for an ensuing stroke evaluation. The stroke evaluation and management will be deferred to the primary service Concerning the patient's hematuria recommend the following: Cause of patient's hematuria is unclear At some point the patient may benefit from obtaining a CT scan of the abdomen and pelvis. I would prefer to hold on this at this time as I would like to utilize contrast and he has already had contrast utilizing studies and has a slight elevation of his creatinine. Will see if his creatinine improves on serial labs and at that time can determine if patient can undergo CT scan of the abdomen pelvis utilizing contrast for further evaluation of his hematuria Will be preferable to hold the patient's Eliquis if clinically able If the patient develops the inability to void a Marsh catheter may need to be placed. At the present time the patient notes that he is voiding without difficulty so I not feel this modality is needed. There is concern for urinary retention bladder scans can be employed and again if patient is retaining urine a Marsh catheter may need to be placed A urinalysis has been sent and we will await the results of this Further evaluation of patient's hematuria may include a cystoscopy but this can be pursued as an outpatient Additional recommendations be forthcoming based on his clinical course as unfolds Supervising Physician Co-Signing Physician Notes Discussed patient with AMIE. Agree with plan. Recommend outpatient hematuria work up History of Present Illness Reason for Consultation: Hematuria Attending Physician: Evans Lofton MD History of Present Illness This is an 87-year-old male who presented to the emergency department at [facility] secondary to slurred speech and altered mental status by his family. Patient reportedly had a fall in the shower hitting his head on the left side. He also notes that he has been getting weaker and more short of breath over the past few days. Since arrival to the hospital the patient has had a stroke evaluation initiated. He has also been noted to have some hematuria and therefore urology was consulted. I did question the patient on urologic symptoms. The patient notes that he did have some hematuria "several years ago" for which she did not seek medical attention as it cleared up. He notes that he has been having some intermittent hematuria for the past 2 to 3 days to the best of his knowledge. He does not recall passing any blood clots. He does feel as though he can empty his bladder completely. He denies any dysuria or or urinary urgency/frequency. He denies any back or flank pain. The patient notes that he has lost an unspecified amount of weight over the past several months which was unintentional but he could not elaborate. The patient also notes that he does have a history of atrial fibrillation and he does take Eliquis twice daily. Since arrival to the hospital patient has had labs and imaging which independent reviewed. Chest x-ray showed cardiomegaly and some pulmonary vascular congestion. A CT scan of the head showed no acute intracranial abnormality. There is no atherosclerotic aneurysms or high-grade stenosis. There is no evidence of dissection or arterial occlusion of the intracerebral vasculature. Patient also had a CT scan of the neck patient was also noted to have no evidence of aneurysm, high-grade stenosis, or dissection of the [place] vasculature. Labs include a CBC her white blood cell count platelet count were normal. His hemoglobin and hematocrit were 12.7 and 38.1. Chemistry profile showed sodium and potassium were within normal range. His BUN and creatinine were elevated at 40 and 1.5 respectively. (There were no pre-existing labs for comparison). A urinalysis has been ordered and is pending. The patient did have a bio fire checked and the patient did test positive for RSV. At the time of my interview the patient was resting comfortably in bed and he was in no distress. Allergies Allergy/AdvReac Type Severity Reaction Status Date / Time Unable to Assess Allergy Unverified 07/16/23 14:10 Home Medications Medication Instructions Recorded Confirmed Type apixaban 2.5 mg tablet (Eliquis) 0 mg PO BID 07/16/23 07/16/23 History furosemide 20 mg tablet 20 mg PO DAILY 07/16/23 07/16/23 History meloxicam 7.5 mg tablet 7.5 mg PO DAILY 07/16/23 07/16/23 History metoprolol succinate 25 mg 25 mg PO DAILY 07/16/23 07/16/23 History tablet,extended release 24 hr potassium chloride 20 mEq 20 meq PO DAILY 07/16/23 07/16/23 History tablet,extended release(part/cryst) atorvastatin 40 mg tablet 40 mg PO QAM #30 tabs 07/18/23 Rx cefdinir 300 mg capsule 300 mg PO DAILY #5 caps 07/18/23 Rx doxycycline hyclate 100 mg capsule 100 mg PO BID #10 caps 07/18/23 Rx prednisone 20 mg tablet 20 mg PO DAILY #3 tabs 07/18/23 Rx Patient History Medical History Slurred speech Generalized weakness Surgical History No pertinent past surgical history Family History Other Dyslipidemia Heart disease Hypertension Social History Smoking Status: Former smoker Second Hand Exposure: No; Do You Dip or Chew Tobacco: No; Tobacco Cessation Education Requested by Patient: No Hx Alcohol Use: No Hx Substance Use: No Preferred Language: Irish Communication Ability: Effective Clinical Aide Required: No Beliefs That Will Affect Care: None Current Living Situation: Spouse Other Information That Helps Us Care for You: No Feels Safe at Home: Yes Safety Concerns: Feels Safe At This Time Assistive Devices: None Review of Systems Constitutional: no fever and no chills Eyes: no blind spots Ear, Nose, Mouth, Throat: no hearing loss Respiratory: no cough Cardiovascular: no chest pain Gastrointestinal: no abdominal pain, no nausea and no vomiting Genitourinary: + as per Subjective / HPI Musculoskeletal: no back pain Integumentary: no rash Neurologic: as per Subjective / HPI, + unsteadiness and + generalized weakness Physical Exam Constitutional: WD/WN, vitals as above Eyes: no conjunctival abnormality ENMT: Ears: no hearing impairment and no external ear abnormality Mouth: no oropharynx abnormality Neck: trachea midline Respiratory: normal respiratory effort; no respiratory distress and no labored breathing Cardiovascular: Rate/Rhythm: regular rate and regular rhythm Gastrointestinal (Abdomen): Abdomen is soft and nondistended. There is no pain with palpation, specifically in the suprapubic region Musculoskeletal: No calf tenderness Skin: no rashes Neurologic: Patient is able move all 4 extremities and follows simple commands. His speech does seem slurred Psychiatric: A+Ox3, euthymic affect Genitourinary: No CVA tenderness bilaterally Results & Data Vital Signs (Past 12 Hours) Vital Signs Temp Pulse Resp BP Pulse Ox O2 Del Method O2 Flow Rate 07/16/23 18:30 82 26 H 97 07/16/23 18:00 81 19 98 07/16/23 17:30 81 35 H 95 07/16/23 17:00 82 19 98 07/16/23 16:30 80 23 97 07/16/23 16:00 82 17 91 07/16/23 14:34 94 Room Air 07/16/23 13:39 37.3 C 07/16/23 13:39 Nasal Cannula 4 07/16/23 13:39 37.3 C 89 16 186/111 H 98 Nasal Cannula 4 PG Care Time/CCT Total # of Minutes Spent Total Time Spent with Patient: Total time spent is greater than 50% in coordination of care (as documented) at patient's floor/unit and/or counseling patient: Coding Level of Care Code 66088 INT INP/OBS CARE 3/75MIN Diagnoses Hematuria R31.9
[2023-07-16 20:51] LABS: Bilirubin Urine Negative (Negative); Blood Urine 3+ (Negative); Epithelial Cell Urine Auto 0-5 /lpf (0-5); Glucose Urine UA Negative (Negative); Ketones Urine Negative (Negative); Leukocyte Esterase Urine Negative (Negative); Nitrite Urine Negative (Negative); Protein Urine 3+ (Negative); RBC Urine Automated >30 /hpf (0-4); Specific Gravity Urine 1.027 (1.000-1.030); Urobilinogen Urine Negative (Negative); pH Urine 6.5 (4.5-7.5)
[2023-07-16 20:54] LABS: Appearance Urine Cloudy (Clear); Color Urine Red
[2023-07-16 21:08] LABS: Cast Urine Automated 0 /lpf (0-5)
[2023-07-16 21:09] LABS: Phosphorus 4.2 mg/dl (2.5-4.9)
[2023-07-16 21:09] LABS: Bacteria Urine Automated 1+ (Negative); WBC Urine Automated >30 /hpf (0-5)
[2023-07-16] MEDS: APIXABAN 2.5 MG TAB PO SCH (22:11)
[2023-07-16] MEDS: guaiFENesin 600 MG TABCR PO SCH (22:12)
[2023-07-17 06:20] LABS: Albumin Globulin Ratio 1.7 (0.9-2); Albumin Level 3.3 gm/dl (3.4-5.0); BUN Creatinine Ratio 25.8 (10-20); Bilirubin,Total 0.8 mg/dl (0.2-1.0); Calcium 7.9 mg/dl (8.6-10.3); Chol HDL Ratio 1.8 (0-5); Creatinine Clr Calc Pharmacy 33.4 ml/min; Est GFR (Non-African American) 39.7 ml/min; Magnesium 1.9 mg/dl (1.7-2.4); Potassium 4.4 mmol/L (3.5-5.1); Total Protein 5.3 gm/dl (6.0-8.3)
[2023-07-17 06:28] LABS: Hematocrit (blood only) 36.1 % (42.0-52.0); Hemoglobin 12.4 g/dl (14.0-18.0); Mean Corpuscular Hemoglobin 32.9 pg (25.0-34.0); Mean Corpuscular Hgb Conc 34.3 g/dL (32.0-36.0); Mean Corpuscular Volume 95.8 fL (80.0-100.0); Mean Platelet Volume 10.1 fL (9.4-12.4); Platelet Count 125 K/uL (130-400); RDW Coefficient of Variation 13.2 % (11.5-14.5); RDW Standard Deviation 46.8 fL (36.4-46.3); Red Blood Count 3.77 M/uL (4.70-6.10); White Blood Count 9.89 K/ul (4.8-10.8)
--- NOTE | 2023-07-17 09:10 | Electrocardiogram Report ---
Test Reason : Blood Pressure : / mmHG Vent. Rate : 080 BPM Atrial Rate : 340 BPM P-R Int : 000 ms QRS Dur : 178 ms QT Int : 464 ms P-R-T Axes : 000 -74 110 degrees QTc Int : 535 ms Ventricular-paced rhythm Abnormal ECG No previous ECGs available Confirmed by Elijah Moreno ([id number]) on 07/17/2023 9:09:48 AM Referred By: REFERRED SELF Confirmed By:Elijah Moreno
[2023-07-17] MEDS: POTASSIUM CHLORIDE CRTAB 20 MEQ TABCR PO SCH (09:21)
[2023-07-17] MEDS: APIXABAN 2.5 MG TAB PO SCH ×2 (09:21→20:09)
[2023-07-17] MEDS: FUROSEMIDE 20 MG TAB PO SCH (09:22)
[2023-07-17] MEDS: guaiFENesin 600 MG TABCR PO SCH ×2 (09:22→20:09)
[2023-07-17] MEDS: METOPROLOL SUCC 25MG EXT REL TAB PO SCH (09:22)
[2023-07-17] MEDS: methylPREDNISolone 20 MG in SYRINGE 0 ML IV SCH (09:26)
[2023-07-17] MEDS: DOXYCYCLINE HYCLATE 100 MG CAP PO SCH ×2 (09:40→20:09)
--- NOTE | 2023-07-17 11:59 | CT Scan Report ---
CT SCAN OF THE BRAIN WITHOUT IV CONTRAST CLINICAL HISTORY: Slurred speech. COMPARISON STUDY: CT of the brain dated 07/16/2023. TECHNIQUE: Unenhanced axial CT scan of the brain is performed from the vertex to the skull base. A do se lowering technique was utilized adhering to the principles of ALARA. CT DOSE: 625.8 mGy.cm FINDINGS: Brain parenchyma: There is age-related involutional change noting moderate subcortical and periventri cular microangiopathic disease. There is no hemorrhage, mass effect, or evidence of acute territorial ischemia by CT criteria. Dalal-white matter differentiation is preserved. No extra-axial fluid collec tion is seen. Ventricles, sulci, cisterns: Prominent secondary to involutional change. Intracranial vasculature: There is atherosclerotic calcification of the cavernous carotid and vertebr al arteries. Calvarium: Unremarkable. Sinuses and mastoids: There is moderate mucosal thickening within the ethmoid sinuses. Trace mucosal thickening and fluid is seen within the sphenoid and frontal sinuses. There is also trace mucosal thi ckening within the maxillary sinuses. The mastoid air cells are well pneumatized. Orbits: The bony orbits are grossly intact. There are bilateral ocular lens implants. IMPRESSION: 1 There is no hemorrhage, mass effect, or evidence of acute territorial ischemia by CT criteria. 2. Pansinus disease as above. ACT 112: Negative or not required by law. Electronically signed by: Lg Montgomery M.D. 07/17/2023 11:58 AM
[2023-07-17] MEDS: cefTRIAXone SODIUM 1,000 MG in DEXTROSE 5 % MINI-B 50 ML IV SCH (13:39)
--- NOTE | 2023-07-17 15:43 | Neurology Consultation ---
Date of Consultation July 17, 2023 Assessment & Plan (1) Slurred speech: Presented with slurred speech as well as hypoxia & changes in mentation - now resolved Dysarthria persists Recommend continued stroke work up to include the following: MRI brain without contrast Echocardiogram as part of complete stroke workup Continue frequent neurological assessments Obtain stat CT brain without contrast for any acute neurological decline Continue to monitor/control blood pressure & blood glucose Continue rate control in setting of hx AFIB Metabolic workup should include hgbA1c, fasting lipids, homocysteine, TSH, D Dimer Continue full anticoagulation (hx AFIB) Consider addition of statin medication Ok from neurology perspective for VTE prophylaxis if not fully anticoagulated PT/OT/SLT to eval and treat Telehealth Consultation Telehealth Information Telehealth Information: I performed this visit using a real-time telehealth connection between my location and the patients location ([facility]). After connecting through interactive tele-video, patient was identified by name and date of and/or wristband check.Patient (or authorized healthcare printing sales representative) was informed that this was a telemedicine visit and it was being conducted confidentially over secure lines. My office door was closed and no one else was present in the room with me.Patient (or authorized healthcare printing sales representative) provided consent to proceed with the visit, expressed an understanding of privacy and security of the telemedicine visit, and gave permission to have a hospital printing sales representative in the room in order to assist with the visit and to conduct portions of the visit, as needed. I informed the patient (or authorized healthcare printing sales representative) that I reviewed their record and presented the opportunity for them to ask any questions regarding the visit today. The patient agreed to participate. History of Present Illness Reason for Consultation: Stroke Like Symptoms Requesting Physician: Dr. Lofton Attending Physician: Evans Lofton MD History of Present Illness 87yo male with significant stroke risk factors including HTN & AFIB for [facility] he is fully anticoagulated presented to ER with changes in mentation, dysarthria. Notably it is reported he has had a recent fall while in the shower. He has undergone emergent stroke imaging including CT brain without contrast personally reviewed revealing no overt evidence of hemorrhage. CT angiographic studies of head and neck reveal no overt evidence of large vessel occlusion or significant/flow limiting stenosis. I have performed televideo consultation with RN and family at bedside. Patient is hard of hearing and currently does not have his hearing aids. He also does not have his dentures. Family at bedside reports back to baseline mentation and his speech is now much improved but not yet returned to baseline. He is worried about getting home to care for his . He currently denies pain. No reported cephalgia or cervicalgia. Denies chest pain/palpitations or shortness of breath. No reported changes in vision hearing dizziness syncope seizure like activity or paresthesia. Denies recent fevers chills nausea vomiting changes in bowels or bladder. He has reportedly suffered worsening shortness of breath and weakness over the days leading up to hospitalization and has tested positive for RSV. He is agreeable to undergo MRI after family will retrieve his device identification care for implanted pacemaker. Allergies Allergy/AdvReac Type Severity Reaction Status Date / Time Unable to Assess Allergy Unverified 07/16/23 14:10 Home Medications Medication Instructions Recorded Confirmed Type apixaban 2.5 mg tablet (Eliquis) 0 mg PO BID 07/16/23 07/16/23 History furosemide 20 mg tablet 20 mg PO DAILY 07/16/23 07/16/23 History meloxicam 7.5 mg tablet 7.5 mg PO DAILY 07/16/23 07/16/23 History metoprolol succinate 25 mg 25 mg PO DAILY 07/16/23 07/16/23 History tablet,extended release 24 hr potassium chloride 20 mEq 20 meq PO DAILY 07/16/23 07/16/23 History tablet,extended release(part/cryst) Patient History Medical History Slurred speech Generalized weakness Surgical History No pertinent past surgical history Family History Other Dyslipidemia Heart disease Hypertension Social History Smoking Status: Former smoker Second Hand Exposure: No; Do You Dip or Chew Tobacco: No; Tobacco Cessation Education Requested by Patient: No Hx Alcohol Use: No Hx Substance Use: No Preferred Language: Chinese Communication Ability: Effective Ad Trafficker Required: No Beliefs That Will Affect Care: None Current Living Situation: Spouse Other Information That Helps Us Care for You: No Feels Safe at Home: Yes Safety Concerns: Feels Safe At This Time Assistive Devices: None Physical Exam Neurological Examination: Mental Status: Awake and alert to self location and most of situation Tells me tomorroe is the next holiday Fluency naming repetition and comprehension appear grossly intact. Affect appears anxious- he is concerned about at home CN testing: I: Denies changes in ability to smell II:Reports no changes in visual acuity III/IV/: No evidence of gaze preference, hippus, nystagmus or roving eye m ovements V: Facial sensation reportedly grossly intact to light touch bilaterally VII: Facial movements appear without evidence of asymmetry VIII: Chronic hypoacusis IX/X: Palate appears to elevate symmetrically XI: Shoulder shrug appears symmetric/ grossly intact bilaterally XII: Tongue protrudes midline without evidence of biting Motor exam: Strength appears grossly intact/symmetric in all extremities Sensory: Sensation is reportedly grossly intact throughout Coordination: Finger to nose and heel to colin were intact. No apparent evidence of dysmetria or dysdiadochokinesia Reflexes: Deferred Gait: Deferred Results & Data Vital Signs (Past 12 Hours) Vital Signs Temp Pulse Pulse Resp BP Pulse Ox O2 Del Method 07/17/23 12:00 36.4 C L 80 14 126/89 98 Nasal Cannula 07/17/23 08:36 36.4 C L 80 17 140/69 97 Nasal Cannula 07/17/23 08:12 80 07/17/23 08:10 Nasal Cannula O2 Flow Rate 07/17/23 12:00 4 07/17/23 08:36 4 07/17/23 08:12 07/17/23 08:10 4 Laboratory Results Abnormal lab results 07/16/23 07/16/23 07/16/23 Range/Units 16:49 20:27 21:41 RBC (4.70-6.10) M/uL Hgb (14.0-18.0) g/dl Hct (42.0-52.0) % RDW Std Deviation (36.4-46.3) fL Plt Count (130-400) K/uL Chloride (98-107) mmol/L Carbon Dioxide (21-32) mmol/L BUN (6-23) mg/dl Creatinine (0.6-1.4) mg/dl BUN/Creatinine Ratio (10-20) Glucose (70-99(Fasting)) mg/dl Calcium (8.6-10.3) mg/dl Troponin I High Sens 53.1 H* 82.4 H* D (0-20) pg/ml Total Protein (6.0-8.3) gm/dl Albumin (3.4-5.0) gm/dl Globulin (2.5-4.0) gm/dl Procalcitonin (0-0.5) ng/ml Urine Appearance Cloudy A (Clear) Urine Protein 3+ H (Negative) Urine Blood 3+ H (Negative) Urine WBC (Auto) >30 H (0-5) /hpf Urine RBC (Auto) >30 H (0-4) /hpf Urine Bacteria (Auto) 1+ H (Negative) 07/17/23 Range/Units 05:51 RBC 3.77 L (4.70-6.10) M/uL Hgb 12.4 L (14.0-18.0) g/dl Hct 36.1 L (42.0-52.0) % RDW Std Deviation 46.8 H (36.4-46.3) fL Plt Count 125 L (130-400) K/uL Chloride 110 H (98-107) mmol/L Carbon Dioxide 20 L (21-32) mmol/L BUN 40 H (6-23) mg/dl Creatinine 1.55 H (0.6-1.4) mg/dl BUN/Creatinine Ratio 25.8 H (10-20) Glucose 100 H (70-99(Fasting)) mg/dl Calcium 7.9 L (8.6-10.3) mg/dl Troponin I High Sens (0-20) pg/ml Total Protein 5.3 L (6.0-8.3) gm/dl Albumin 3.3 L (3.4-5.0) gm/dl Globulin 2.0 L (2.5-4.0) gm/dl Procalcitonin 2.84 H (0-0.5) ng/ml Urine Appearance (Clear) Urine Protein (Negative) Urine Blood (Negative) Urine WBC (Auto) (0-5) /hpf Urine RBC (Auto) (0-4) /hpf Urine Bacteria (Auto) (Negative) Diagnostic Findings Head CT 07/17/23 10:58 CT SCAN OF THE BRAIN WITHOUT IV CONTRAST CLINICAL HISTORY: Slurred speech. COMPARISON STUDY: CT of the brain dated 07/16/2023. TECHNIQUE: Unenhanced axial CT scan of the brain is performed from the vertex to the skull base. A dose lowering technique was utilized adhering to the principles of ALARA. CT DOSE: 625.8 mGy.cm FINDINGS: Brain parenchyma: There is age-related involutional change noting moderate subcortical and periventricular microangiopathic disease. There is no hemorrhage, mass effect, or evidence of acute territorial ischemia by CT criteria. Dalal-white matter differentiation is preserved. No extra-axial fluid collection is seen. Ventricles, sulci, cisterns: Prominent secondary to involutional change. Intracranial vasculature: There is atherosclerotic calcification of the cavernous carotid and vertebral arteries. Calvarium: Unremarkable. Sinuses and mastoids: There is moderate mucosal thickening within the ethmoid sinuses. Trace mucosal thickening and fluid is seen within the sphenoid and frontal sinuses. There is also trace mucosal thickening within the maxillary sinuses. The mastoid air cells are well pneumatized. Orbits: The bony orbits are grossly intact. There are bilateral ocular lens implants. IMPRESSION: 1 There is no hemorrhage, mass effect, or evidence of acute territorial ischemia by CT criteria. 2. Pansinus disease as above. ACT 112: Negative or not required by law. Electronically signed by: Lg Montgomery M.D. 07/17/2023 11:58 AM Medications Administered Home Medications Medication Instructions Recorded Confirmed Last Taken apixaban 2.5 mg tablet (Eliquis) 0 mg PO BID 07/16/23 07/16/23 Unknown furosemide 20 mg tablet 20 mg PO DAILY 07/16/23 07/16/23 Unknown meloxicam 7.5 mg tablet 7.5 mg PO DAILY 07/16/23 07/16/23 Unknown metoprolol succinate 25 mg 25 mg PO DAILY 07/16/23 07/16/23 Unknown tablet,extended release 24 hr potassium chloride 20 mEq 20 meq PO DAILY 07/16/23 07/16/23 Unknown tablet,extended release(part/cryst) Active Medications Generic Name Dose Route Start Last Admin Trade Name Freq PRN Reason Stop Dose Admin Apixaban 2.5 mg 07/16/23 21:00 07/17/23 09:21 Apixaban 2.5 Mg Tab PO 08/15/23 20:59 2.5 mg BID RENAE Administration Doxycycline Hyclate 100 mg 07/17/23 09:00 07/17/23 09:40 Doxycycline Hyclate 100 Mg Cap PO 07/24/23 08:59 100 mg BID RENAE Administration Furosemide 20 mg 07/17/23 09:00 07/17/23 09:22 Furosemide 20 Mg Tab PO 08/16/23 08:59 20 mg DAILY RENAE Administration Guaifenesin 1,200 mg 07/16/23 21:00 07/17/23 09:22 Guaifenesin 600 Mg Tabcr PO 08/15/23 20:59 1,200 mg Q12 RENAE Administration Methylprednisolone 20 mg/ 0.32 mls @ 1.5 mls/min 07/16/23 18:15 07/17/23 09:26 Syringe IV 08/15/23 18:14 1.5 mls/min DAILY RENAE Administration Ceftriaxone Sodium 1,000 mg/ 50 mls @ 100 mls/hr 07/17/23 12:00 07/17/23 14: 10 Dextrose IV 07/24/23 11:59 Infused Q24H RENAE Infusion Protocol Metoprolol Succinate 25 mg 07/17/23 09:00 07/17/23 09:22 Metoprolol Succ 25mg Ext Rel Tab PO 08/16/23 08:59 25 mg DAILY RENAE Administration Potassium Chloride 20 meq 07/17/23 09:00 07/17/23 09:21 Potassium Chloride Crtab 20 Meq Tabcr PO 08/16/23 08:59 20 meq DAILY RENAE Administration
--- NOTE | 2023-07-17 16:26 | Hospitalist Progress Note ---
Date of Service July 17, 2023 Assessment & Plan (1) Respiratory syncytial virus (RSV): (2) Slurred speech: (3) Generalized weakness: (4) Elevated troponin: (5) Hypoxia: Plan Mr. Méndez is an 87-year-old male that presented to the ED today after his family noticed that he was having some slurred speech and altered mental status. Today he fell in the shower and hit his head on the left side. He has been progressively getting weaker and short of breath over the past few days. He has had notable cough.Chest x-ray revealed mild right opacities in the setting of suspected atelectasis. Head CT negative for SDH, ICH or midline shift. Head neck CTA revealed atherosclerosis without aneurysm, stenosis dissection or aortic occlusion. RSV Infection Hypoxia secondary to above Acute metabolic encephalopathy likely secondary to hypoxia--POA DD: CVA --CXR:Cardiomegaly with pulmonary vascular congestion. Mild right basilar opacities favor atelectasis. -- BioFire positive for RSV Elevated procalcitonin Empirically on Rocephin, doxycycline Continue IV Solu-Medrol Flutter valve and incentive spirometry ordered Mental status back to baseline Strokelike symptoms Rule out CVA --CT head/CTA head and Neck:No acute intracranial abnormality identified. Atherosclerosis without aneurysm, high-grade stenosis, dissection or arterial occlusion identified. --Repeat CT head:There is no hemorrhage, mass effect, or evidence of acute territorial ischemia by CT criteria. -- Brain MRI pending (unsure if compatible with pacemaker) --ECHO: Rhythm is atrial fibrillation with ventricular pacing. Left ventricle is normal in size. Moderate concentric LVH. Apical wall motion abnormality may reflect a pacemaker activation. EF 50 to 55%. Left atrium is severely dilated. Aortic valve sclerosis mild, without significant aortic valvular stenosis. Trace aortic regurgitation. Moderate mitral regurgitation. Moderate tricuspid regurgitation. Interatrial septum is intact with no evidence of ASD. Injection of contrast documented no intra atrial shunt. -- Lipid panel within normal limits. LDL 79. --Continue neurochecks Check HbA1c, TSH Start on statin Continue PT OT, speech eval On Eliquis for chronic anticoagulation Appreciate neurology input Elevated troponin: Troponin 49.3; repeat 53; continue to trend. Do not suspect ACS or other ischemic demand Likely demand ischemia secondary to hypoxia Echo showed no wall motion abnormality Patient denied any chest pain Atrial Fibrillation: Chronic Takes Eliquis; continue Takes Metoprolol; continue Transient hematuria In setting of anticoagulation with Eliquis ? UTI Urine culture pending Blood cultures pending Urology on board Empirically on Rocephin May need cystoscopy eventually CKD III Unclear baseline Monitor renal function Avoid nephrotoxic agents as able DVT Px: Eliquis Code Status: Full code Admission and Anticipated Discharge Date Admission Date: July 16, 2023 Subjective Patient is seen and examined at bedside Reports minimal cough Hematuria resolved Discussed with neurology today Denies any chest pain, dyspnea Saturating well on 4 L supplemental oxygen Eager to get discharged Review of Systems Review of Systems: All systems reviewed & are unremarkable except as noted in Subjective Physical Exam Physical Exam: Physical Exam: Vitals signs as noted above General Appearance:Moderately built and nourished, no apparent distress Head: normocephalic, Atraumatic Eyes: normal inspection, EOMI Neck: supple, Trachea midline Respiratory/Chest: Decreased breath sounds, scattered Rhonchi, No accessory muscle use Cardiovascular: S1, S2, No murmur Abdomen/GI:Soft, Non tender, Bowel sounds present Extremities/Musculoskeletal:normal inspection, R > L LE edema Neurologic/Psych:AAOX3, +Slurred speech, facial droop, otherwise grossly no focal neurological deficits Skin: normal color, warm Results & Data Results & Data Vital Signs (Past 12 Hours) Vital Signs Temp Pulse Pulse Resp BP Pulse Ox O2 Del Method 07/17/23 12:00 36.4 C L 80 14 126/89 98 Nasal Cannula 07/17/23 08:36 36.4 C L 80 17 140/69 97 Nasal Cannula 07/17/23 08:12 80 07/17/23 08:10 Nasal Cannula O2 Flow Rate 07/17/23 12:00 4 07/17/23 08:36 4 07/17/23 08:12 07/17/23 08:10 4 Laboratory Results Short CBC 07/17/23 Range/Units 05:51 WBC 9.89 (4.8-10.8) K/ul Hgb 12.4 L (14.0-18.0) g/dl Hct 36.1 L (42.0-52.0) % Plt Count 125 L (130-400) K/uL BMP 07/17/23 05:51 Sodium 138 Potassium 4.4 Chloride 110 H Carbon Dioxide 20 L BUN 40 H Creatinine 1.55 H Glucose 100 H Calcium 7.9 L Liver Function 07/17/23 Range/Units 05:51 Total Bilirubin 0.8 (0.2-1.0) mg/dl AST 28 (13-39) U/L ALT 19 (7-52) U/L Alkaline Phosphatase 98 (34-104) U/L Albumin 3.3 L (3.4-5.0) gm/dl Urine 07/16/23 Range/Units 20:27 Urine Color Red Urine Appearance Cloudy A (Clear) Urine pH 6.5 (4.5-7.5) Ur Specific [place] 1.027 (1.000-1.030) Urine Protein 3+ H (Negative) Urine Glucose (UA) Negative (Negative)
[2023-07-17] MEDS: ATORVASTATIN 40 MG TAB PO SCH (18:21)
[2023-07-17 19:11] LABS: Hematocrit (blood only) 38.2 % (42.0-52.0); Hemoglobin 12.6 g/dl (14.0-18.0)
[2023-07-18 06:50] LABS: Hematocrit (blood only) 39.6 % (42.0-52.0); Hemoglobin 13.4 g/dl (14.0-18.0); Mean Corpuscular Hemoglobin 33.4 pg (25.0-34.0); Mean Corpuscular Hgb Conc 33.8 g/dL (32.0-36.0); Mean Corpuscular Volume 98.8 fL (80.0-100.0); Mean Platelet Volume 9.8 fL (9.4-12.4); Platelet Count 155 K/uL (130-400); RDW Coefficient of Variation 13.3 % (11.5-14.5); Red Blood Count 4.01 M/uL (4.70-6.10); White Blood Count 10.55 K/ul (4.8-10.8)
[2023-07-18 07:14] LABS: BUN Creatinine Ratio 29.5 (10-20); Calcium 8.5 mg/dl (8.6-10.3); Creatinine Clr Calc Pharmacy 25.8 ml/min; Est GFR (African American) 35.3 ml/min; Est GFR (Non-African American) 30.4 ml/min; Potassium 4.3 mmol/L (3.5-5.1)
[2023-07-18 07:31] LABS: Thyroid Stimulating Hormone 1.703 uIu/ml (0.300-4.500)
[2023-07-18] MEDS: methylPREDNISolone 20 MG in SYRINGE 0 ML IV SCH (07:37)
[2023-07-18] MEDS: DOXYCYCLINE HYCLATE 100 MG CAP PO SCH (07:37)
[2023-07-18] MEDS: FUROSEMIDE 20 MG TAB PO SCH (07:37)
[2023-07-18] MEDS: METOPROLOL SUCC 25MG EXT REL TAB PO SCH (07:37)
[2023-07-18] MEDS: ATORVASTATIN 40 MG TAB PO SCH (07:38)
[2023-07-18] MEDS: guaiFENesin 600 MG TABCR PO SCH (07:38)
[2023-07-18] MEDS: POTASSIUM CHLORIDE CRTAB 20 MEQ TABCR PO SCH (07:39)
[2023-07-18 07:47] LABS: Estimated Average Glucose 94 mg/dl; Hemoglobin A1C 4.9 % (4.5-5.6)
--- NOTE | 2023-07-18 09:21 | XRay Report ---
XR chest 1V portable CLINICAL HISTORY: Hypoxia. COMPARISON STUDY: Chest radiograph July 16, 2023. FINDINGS: The left subclavian pacer is in place. There is moderate cardiomegaly. Right basilar opacit y has increased. Subtle asymmetric interstitial thickening of the right lung is present. Left lung is clear. IMPRESSION: 1. Increase in right basilar opacity which favors pneumonia. Radiographic follow-up to ensure resolut ion is recommended. 2. Cardiomegaly. Mild asymmetric right lung interstitial thickening. Mild pulmonary edema cannot be e xcluded. ACT 112: Negative or not required by law. Electronically signed by: Malik Zaldivar M.D. 07/18/2023 9:19 AM
[2023-07-18] MEDS: APIXABAN 2.5 MG TAB PO SCH (10:12)
[2023-07-18] MEDS: cefTRIAXone SODIUM 1,000 MG in DEXTROSE 5 % MINI-B 50 ML IV SCH (11:34)
--- NOTE | 2023-07-18 12:45 | Hospitalist Progress Note ---
Date of Service July 18, 2023 Assessment & Plan (1) Respiratory syncytial virus (RSV): (2) Slurred speech: (3) Generalized weakness: (4) Elevated troponin: (5) Hypoxia: Plan Mr. Méndez is an 87-year-old male that presented to the ED today after his family noticed that he was having some slurred speech and altered mental status. Today he fell in the shower and hit his head on the left side. He has been progressively getting weaker and short of breath over the past few days. He has had notable cough.Chest x-ray revealed mild right opacities in the setting of suspected atelectasis. Head CT negative for SDH, ICH or midline shift. Head neck CTA revealed atherosclerosis without aneurysm, stenosis dissection or aortic occlusion. RSV Infection Hypoxia secondary to above Acute metabolic encephalopathy likely secondary to hypoxia--POA DD: CVA --CXR:Cardiomegaly with pulmonary vascular congestion. Mild right basilar opacities favor atelectasis. -- BioFire positive for RSV Elevated procalcitonin Empirically on Rocephin, doxycycline Continue IV Solu-Medrol Flutter valve and incentive spirometry ordered Mental status back to baseline Patient saturating well off supplemental oxygen Strokelike symptoms Rule out CVA --CT head/CTA head and Neck:No acute intracranial abnormality identified. Atherosclerosis without aneurysm, high-grade stenosis, dissection or arterial occlusion identified. --Repeat CT head:There is no hemorrhage, mass effect, or evidence of acute territorial ischemia by CT criteria. -- Brain MRI pending (unsure if compatible with pacemaker) --ECHO: Rhythm is atrial fibrillation with ventricular pacing. Left ventricle is normal in size. Moderate concentric LVH. Apical wall motion abnormality may reflect a pacemaker activation. EF 50 to 55%. Left atrium is severely dilated. Aortic valve sclerosis mild, without significant aortic valvular stenosis. Trace aortic regurgitation. Moderate mitral regurgitation. Moderate tricuspid regurgitation. Interatrial septum is intact with no evidence of ASD. Injection of contrast documented no intra atrial shunt. -- Lipid panel within normal limits. LDL 79. --Continue neurochecks HbA1c, TSH: Normal Start on statin Continue PT OT, speech eval On Eliquis for chronic anticoagulation Appreciate neurology input MRI brain pending Despite explaining the risks and complications of not completing workup and managing appropriately, patient prefers to sign out AGAINST MEDICAL ADVICE. Elevated troponin: Troponin 49.3; repeat 53; continue to trend. Do not suspect ACS or other ischemic demand Likely demand ischemia secondary to hypoxia Echo showed no wall motion abnormality Patient denied any chest pain Atrial Fibrillation: Chronic Takes Eliquis; continue Takes Metoprolol; continue Hematuria In setting of anticoagulation with Eliquis ? UTI Urine culture pending Blood cultures negative to date Urology on board Empirically on Rocephin May need cystoscopy eventually José Miguel hoang Continues to have hematuria Advised to follow-up with urology Despite explaining the risks and complications of not completing workup and managing appropriately, patient prefers to sign out AGAINST MEDICAL ADVICE. BELÉN on CKD III Unclear baseline Monitor renal function Avoid nephrotoxic agents as able Cr 1.9 today Despite explaining the risks and complications of not completing workup and managing appropriately, patient prefers to sign out AGAINST MEDICAL ADVICE. DVT Px: Eliquis --Held Re: Hematuria Code Status: Full code Disposition AGAINST MEDICAL ADVICE Admission and Anticipated Discharge Date Admission Date: July 16, 2023 Subjective Patient is seen and examined at bedside Noted to have hematuria during my encounter Cough much improved Patient eager to get discharged Renal function worsening Saturating well off supplemental oxygen Denies any chest pain, dyspnea MRI brain pending Review of Systems Review of Systems: All systems reviewed & are unremarkable except as noted in Subjective Physical Exam Physical Exam: Physical Exam: Vitals signs as noted above General Appearance:Moderately built and nourished, no apparent distress Head: normocephalic, Atraumatic Eyes: normal inspection, EOMI Neck: supple, Trachea midline Respiratory/Chest: Decreased breath sounds, scattered Rhonchi, No accessory muscle use Cardiovascular: S1, S2, No murmur Abdomen/GI:Soft, Non tender, Bowel sounds present Extremities/Musculoskeletal:normal inspection, R > L LE edema Neurologic/Psych:AAOX3, +Slurred speech, facial droop, otherwise grossly no focal neurological deficits Skin: normal color, warm Results & Data Results & Data Vital Signs (Past 12 Hours) Vital Signs Temp Pulse Resp BP Pulse Ox O2 Del Method 07/18/23 10:52 36.3 C L 82 20 157/98 H 96 Room Air 07/18/23 09:00 Room Air 07/18/23 08:15 36.4 C L 86 23 148/96 H 96 Room Air 07/18/23 02:57 36.4 C L 83 19 150/99 H 95 Room Air Laboratory Results Short CBC 07/17/23 07/18/23 Range/Units 18:51 06:30 WBC 10.55 (4.8-10.8) K/ul Hgb 12.6 L 13.4 L (14.0-18.0) g/dl Hct 38.2 L 39.6 L (42.0-52.0) % Plt Count 155 (130-400) K/uL BMP 07/18/23 06:30 Sodium 138 Potassium 4.3 Chloride 108 H Carbon Dioxide 22 BUN 57 H Creatinine 1.93 H D Glucose 87 Calcium 8.5 L
--- NOTE | 2023-07-18 19:11 | Discharge Summary ---
Date of Service July 18, 2023 Admission HPI Per Admitting Provider Mr. Méndez is an 87-year-old male that presented to the ED today after his family noticed that he was having some slurred speech and altered mental status. Today he fell in the shower and hit his head on the left side. He has been progressively getting weaker and short of breath over the past few days. He has had notable cough. Chest x-ray revealed mild right opacities in the setting of suspected ate lectasis. Head CT negative for SDH, ICH or midline shift. Head neck CTA revealed atherosclerosis without aneurysm, stenosis dissection or aortic occlusion. Patient tested positive for RSV. No leukocytosis, lactate 1.5, ionized calcium 1.03, calcium 8.3, mag 1.7, troponin 49.3; recheck at 53 and will continue to trend. Do not suspect that this is related to an ACS event rather ischemic demand. Additional past medical history includes HTN and A-fib. Of note this patient follows infrequently with a PCP and likely has progressive weakness and noncompliance with medications. Patient denies headache, dizziness, visual or auditory changes, chest pain, palpitations, abdominal pain or tenderness, changes in bowels, additional falls or trauma. On exam patient without wheezes however is rhonchitic throughout. Patient is AAO x 2 however is unable to discern his medical ailments. at bedside and family at bedside confirmed full CODE STATUS. No alcohol, tobacco, recreational drug use. 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 Will continue workup for stroke with MRI of the brain, dizziness with Ortho BPs, supportive treatment of RSV with IV steroids, Mucinex, sputum culture, flutter valve, incentive spirometry, gentle IV fluids. Will continue to trend troponin and obtain new baseline echo. Will obtain urinalysis as patient was having hematuria; low threshold for patient having UTI which may be a contributing cause to AMS. Patient will be admitted for further evaluation and management. Please see A/P for further details Admission Exam Per Admitting Provider Neuro: AAOx2, PERRLA, no aphagia, memory changes, CNII-XII grossly intact HEENT: head normocephalic, moist mucus membranes CV: S1/S2, (-) M/G/R, (-) edema, cap refill < 3 seconds Resp: Lungs CTA in all allen. On 4 LNC; rhonchitic throughout. GI: Abdomen S/NT/ND, Ax4 bowel sounds, (-) CVA tenderness Musculoskeletal: 5/5 B/L UE strength, 5/5 B/L LE strength. No gait disturbance; however, R foot deformity Skin: (-) rashes , (-) erythema (+) ecchymosis on bilateral arms. Psych: euthymic mood Principal Diagnosis RSV Infection Strokelike symptoms Hematuria BELÉN on CKD III Discharge Data Allergies Allergy/AdvReac Type Severity Reaction Status Date / Time Unable to Assess Allergy Unverified 07/16/23 14:10 Consultations 07/16/23 14:12 ED Decision to Admit Stat 07/16/23 20:26 Consult Urology Routine 07/17/23 10:58 Consult Neurology Routine Procedures Performed Laboratory Results WBC 10.55 K/ul (4.8-10.8) 07/18/23 06:30 RBC 4.01 M/uL (4.70-6.10) L 07/18/23 06:30 Hgb 13.4 g/dl (14.0-18.0) L 07/18/23 06:30 POC Hgb 12.6 g/dl (14.0-18.0) L 07/16/23 13:36 Hct 39.6 % (42.0-52.0) L 07/18/23 06:30 POC Hct 37 % (42-52) L 07/16/23 13:36 MCV 98.8 fL (80.0-100.0) 07/18/23 06:30 MCH 33.4 pg (25.0-34.0) 07/18/23 06:30 MCHC 33.8 g/dL (32.0-36.0) 07/18/23 06:30 RDW Std Deviation 49.0 fL (36.4-46.3) H 07/18/23 06:30 RDW Coeff of Simone 13.3 % (11.5-14.5) 07/18/23 06:30 Plt Count 155 K/uL (130-400) 07/18/23 06:30 MPV 9.8 fL (9.4-12.4) 07/18/23 06:30 Immature Gran % (Auto) 0.4 % 07/16/23 13:22 Neut % (Auto) 89.8 % 07/16/23 13:22 Lymph % (Auto) 1.4 % 07/16/23 13:22 Chambers % (Auto) 8.2 % 07/16/23 13:22 Eos % (Auto) 0.0 % 07/16/23 13:22 Baso % (Auto) 0.2 % 07/16/23 13:22 Neut # (Auto) 7.60 K/uL (1.40-6.50) H 07/16/23 13:22 Lymph # (Auto) 0.12 K/uL (1.20-3.40) L 07/16/23 13:22 Chambers # (Auto) 0.69 K/uL (0.11-0.59) H 07/16/23 13:22 Eos # (Auto) 0.00 K/uL (0.00-0.50) 07/16/23 13:22 Baso # (Auto) 0.02 K/uL (0.00-0.20) 07/16/23 13:22 Immature Gran # (Auto) 0.03 K/uL (0.01-0.20) 07/16/23 13:22 PT 13.2 Seconds (9.0-12.0) H 07/16/23 13:22 INR 1.2 (0.9-1.1) H 07/16/23 13:22 APTT 29 Seconds (21-31) 07/16/23 13:22 PTT Ratio 1.0 07/16/23 13:22 POC Sodium 138 mmol/L (135-144) 07/16/23 13:36 Sodium 138 mmol/L (136-145) 07/18/23 06:30 POC Potassium 4.1 mmol/L (3.3-5.0) 07/16/23 13:36 Potassium 4.3 mmol/L (3.5-5.1) 07/18/23 06:30 POC Chloride 105 mmol/L (101-112) 07/16/23 13:36 Chloride 108 mmol/L (98-107) H 07/18/23 06:30 Carbon Dioxide 22 mmol/L (21-32) 07/18/23 06:30 POC Total CO2 22 mmol/L (24-31) L 07/16/23 13:36 Anion Gap 8 (3-11) 07/18/23 06:30 POC Anion Gap 16.0 mmol/L (16-25) 07/16/23 13:36 POC BUN 36 mg/dl (7-18) H 07/16/23 13:36 BUN 57 mg/dl (6-23) H 07/18/23 06:30 Creatinine 1.93 mg/dl (0.6-1.4) H D 07/18/23 06:30 POC Creatinine 1.6 mg/dl (0.6-1.3) H 07/16/23 13:36 Est Cr Clr Drug Dosing 25.8 ml/min 07/18/23 06:30 Est GFR ( Amer) 35.3 ml/min 07/18/23 06:30 Est GFR (Non-Af Amer) 30.4 ml/min 07/18/23 06:30 BUN/Creatinine Ratio 29.5 (10-20) H 07/18/23 06:30 Glucose 87 mg/dl (70-99(Fasting)) 07/18/23 06:30 POC Glucose (other) 105 mg/dl (70-99) H 07/16/23 13:36 Estimat Average Glucose 94 mg/dl 07/18/23 06:30 Hemoglobin A1c 4.9 % (4.5-5.6) 07/18/23 06:30 Lactate 1.5 mmol/L (0.4-2.0) 07/16/23 13:29 Calcium 8.5 mg/dl (8.6-10.3) L 07/18/23 06:30 POC Ioniz Calcium Talia 1.03 mmol/l (1.12-1.32) L 07/16/23 13:36 Phosphorus 4.2 mg/dl (2.5-4.9) 07/16/23 16:49 Magnesium 2.0 mg/dl (1.7-2.4) 07/18/23 06:30 Total Bilirubin 0.8 mg/dl (0.2-1.0) 07/17/23 05:51 AST 28 U/L (13-39) 07/17/23 05:51 ALT 19 U/L (7-52) 07/17/23 05:51 Alkaline Phosphatase 98 U/L (34-104) 07/17/23 05:51 Troponin I High Sens 82.4 pg/ml (0-20) H* D 07/16/23 21:41 Total Protein 5.3 gm/dl (6.0-8.3) L 07/17/23 05:51 Albumin 3.3 gm/dl (3.4-5.0) L 07/17/23 05:51 Globulin 2.0 gm/dl (2.5-4.0) L 07/17/23 05:51 Albumin/Globulin Ratio 1.7 (0.9-2) 07/17/23 05:51 Triglycerides 40 mg/dl (0-150) 07/17/23 05:51 Cholesterol 79 mg/dl (0-200) 07/17/23 05:51 LDL Cholesterol, Calc 28 mg/dl 07/17/23 05:51 VLDL Cholesterol, Calc 8 mg/dl (0-30) 07/17/23 05:51 HDL Cholesterol 43 mg/dl 07/17/23 05:51 Cholesterol/HDL Ratio 1.8 (0-5) 07/17/23 05:51 Procalcitonin 2.84 ng/ml (0-0.5) H 07/17/23 05:51 TSH 1.703 uIu/ml (0.300-4.500) 07/18/23 06:30 Urine Color Red 07/16/23 20: Urine Appearance Cloudy (Clear) A 07/16/23 20:27 Urine pH 6.5 (4.5-7.5) 07/16/23 20:27 Ur Specific [place] 1.027 (1.000-1.030) 07/16/23 20:27 Urine Protein 3+ (Negative) H 07/16/23 20:27 Urine Glucose (UA) Negative (Negative) 07/16/23 20: Urine Ketones Negative (Negative) 07/16/23 20: Urine Blood 3+ (Negative) H 07/16/23 20: Urine Nitrite Negative (Negative) 07/16/23 20: Urine Bilirubin Negative (Negative) 07/16/23 20: Urine Urobilinogen Negative (Negative) 07/16/23 20:27 Ur Leukocyte Esterase Negative (Negative) 07/16/23 20:27 Urine WBC (Auto) >30 /hpf (0-5) H 07/16/23 20:27 Urine RBC (Auto) >30 /hpf (0-4) H 07/16/23 20:27 U Hyaline Cast (Auto) 0 /lpf (0-5) 07/16/23 20:27 U Epithel Cells (Auto) 0-5 /lpf (0-5) 07/16/23 20:27 Urine Bacteria (Auto) 1+ (Negative) H 07/16/23 20:27 Adenovirus (PCR) Not Detected (NotDetected) 07/16/23 13:33 B. pertussis DNA (PCR) Not Detected (NotDetected) 07/16/23 13:33 B.parapertussis DNA PCR Not Detected (NotDetected) 07/16/23 13:33 C. pneumoniae DNA (PCR) Not Detected (NotDetected) 07/16/23 13:33 Coronavirus OC43 (PCR) Not Detected (NotDetected) 07/16/23 13:33 Coronavirus HKU1 (PCR) Not Detected (NotDetected) 07/16/23 13:33 Coronavirus 229E (PCR) Not Detected (NotDetected) 07/16/23 13:33 SARS-CoV-2 (PCR) Not Detected (NotDetected) 07/16/23 13:33 Coronavirus NL63 (PCR) Not Detected (NotDetected) 07/16/23 13:33 Human Metapneumovir PCR Not Detected (NotDetected) 07/16/23 13:33 Influenza Type A (PCR) Not Detected (NotDetected) 07/16/23 13:33 Influenza Type B (PCR) Not Detected (NotDetected) 07/16/23 13:33 M. pneumoniae (PCR) Not Detected (NotDetected) 07/16/23 13:33 Parainfluenza 1 (PCR) Not Detected (NotDetected) 07/16/23 13:33 Parainfluenza 2 (PCR) Not Detected (NotDetected) 07/16/23 13:33 Parainfluenza 3 (PCR) Not Detected (NotDetected) 07/16/23 13:33 Parainfluenza 4 (PCR) Not Detected (NotDetected) 07/16/23 13:33 RSV (PCR) DETECTED (NotDetected) A* 07/16/23 13:33 Entero/Rhino (PCR) Not Detected (NotDetected) 07/16/23 13:33 Impressions Head CTA 07/16/23 12:48 CT angio head w con, CT angio neck with con, CT head/brain wo con CLINICAL HISTORY: 87 years-old Male with neuro deficit, acute stroke suspected. Acute stroke like symptoms COMPARISON STUDY: None TECHNIQUE: Unenhanced axial CT scan of the brain is performed. Subsequently, following the IV administration of 117 cc of Optiray, CT angiogram of the head and neck was performed from the aortic arch to the skull apex. Images are reviewed in the axial, sagittal, and coronal planes. 3-D MIPS images are created and assessed. IV contrast was administered without complication. All measurements were obtained according to NASCET criteria. A dose lowering technique was utilized adhering to the principles of ALARA. FINDINGS: Motion degraded exam. CT BRAIN: There is no acute intracranial hemorrhage, midline shift, hydrocephalus, intracranial mass, territorial ischemia or abnormal extra-axial collections. No abnormal intra-axial or extra-axial enhancement. Involutional changes with white matter hypodensities suggestive of chronic microvascular ischemic disease . Mastoid air cells and middle ear cavities are clear. No calvarial fracture. Mild mucosal thickening of the paranasal sinuses. CT ANGIOGRAM OF THE HEAD AND NECK: Left subclavian pacer. Three-vessel morphology of the thoracic aortic arch. Patency of the innominate and image subclavian arteries. The common carotid arteries are patent. Atherosclerotic plaque of the carotid bulbs without significant stenosis. The internal carotid arteries are widely patent. The bilateral anterior and middle cerebral arteries are also patent. The vertebrobasilar system and posterior cerebral arteries are widely patent. There is a mild multifocal luminal narrowing of the intracranial arteries. There is no aneurysm, high-grade stenosis, or proximal branch occlusion identified. Dural sinuses appear patent. Prior bilateral lens repair. The lung apices are generally clear without pneumothorax. Heterogeneous thyroid. Multilevel changes of the cervical spine. Periapical cystic changes of the mandible. The patient has numerous missing teeth. IMPRESSION: 1. No acute intracranial abnormality identified. 2. Atherosclerosis without aneurysm, high-grade stenosis, dissection or arterial occlusion identified. ACT 112: Negative or not required by law. The above report was generated using voice recognition software. It may contain grammatical, syntax or spelling errors. Electronically signed by: Brennon Holguin M.D. 07/16/2023 1:31 PM Neck CTA 07/16/23 12:48 CT angio head w con, CT angio neck with con, CT head/brain wo con CLINICAL HISTORY: 87 years-old Male with neuro deficit, acute stroke suspected. Acute stroke like symptoms COMPARISON STUDY: None TECHNIQUE: Unenhanced axial CT scan of the brain is performed. Subsequently, following the IV administration of 117 cc of Optiray, CT angiogram of the head and neck was performed from the aortic arch to the skull apex. Images are reviewed in the axial, sagittal, and coronal planes. 3-D MIPS images are created and assessed. IV contrast was administered without complication. All measurements were obtained according to NASCET criteria. A dose lowering technique was utilized adhering to the principles of ALARA. FINDINGS: Motion degraded exam. CT BRAIN: There is no acute intracranial hemorrhage, midline shift, hydrocephalus, intracranial mass, territorial ischemia or abnormal extra-axial collections. No abnormal intra-axial or extra-axial enhancement. Involutional changes with white matter hypodensities suggestive of chronic microvascular ischemic disease . Mastoid air cells and middle ear cavities are clear. No calvarial fracture. Mild mucosal thickening of the paranasal sinuses. CT ANGIOGRAM OF THE HEAD AND NECK: Left subclavian pacer. Three-vessel morphology of the thoracic aortic arch. Patency of the innominate and image subclavian arteries. The common carotid arteries are patent. Atherosclerotic plaque of the carotid bulbs without significant stenosis. The internal carotid arteries are widely patent. The bilateral anterior and middle cerebral arteries are also patent. The vertebrobasilar system and posterior cerebral arteries are widely patent. There is a mild multifocal luminal narrowing of the intracranial arteries. There is no aneurysm, high-grade stenosis, or proximal branch occlusion identified. Dural sinuses appear patent. Prior bilateral lens repair. The lung apices are generally clear without pneumothorax. Heterogeneous thyroid. Multilevel changes of the cervical spine. Periapical cystic changes of the mandible. The patient has numerous missing teeth. IMPRESSION: 1. No acute intracranial abnormality identified. 2. Atherosclerosis without aneurysm, high-grade stenosis, dissection or arterial occlusion identified. ACT 112: Negative or not required by law. The above report was generated using voice recognition software. It may contain grammatical, syntax or spelling errors. Electronically signed by: Brennon Holguin M.D. 07/16/2023 1:[address] 07/17/23 10:58 CT SCAN OF THE BRAIN WITHOUT IV CONTRAST CLINICAL HISTORY: Slurred speech. COMPARISON STUDY: CT of the brain dated 07/16/2023. TECHNIQUE: Unenhanced axial CT scan of the brain is performed from the vertex to the skull base. A dose lowering technique was utilized adhering to the principles of ALARA. CT DOSE: 625.8 mGy.cm FINDINGS: Brain parenchyma: There is age-related involutional change noting moderate subcortical and periventricular microangiopathic disease. There is no hemorrhage, mass effect, or evidence of acute territorial ischemia by CT criteria. Dalal-white matter differentiation is preserved. No extra-axial fluid collection is seen. Ventricles, sulci, cisterns: Prominent secondary to involutional change. Intracranial vasculature: There is atherosclerotic calcification of the cavernous carotid and vertebral arteries. Calvarium: Unremarkable. Sinuses and mastoids: There is moderate mucosal thickening within the ethmoid sinuses. Trace mucosal thickening and fluid is seen within the sphenoid and frontal sinuses. There is also trace mucosal thickening within the maxillary sinuses. The mastoid air cells are well pneumatized. Orbits: The bony orbits are grossly intact. There are bilateral ocular lens implants. IMPRESSION: 1 There is no hemorrhage, mass effect, or evidence of acute territorial ischemia by CT criteria. 2. Pansinus disease as above. ACT 112: Negative or not required by law. Electronically signed by: Lg Montgomery M.D. 07/17/2023 11:58 AM Chest X-Ray 07/18/23 07:00 XR chest 1V portable CLINICAL HISTORY: Hypoxia. COMPARISON STUDY: Chest radiograph July 16, 2023. FINDINGS: The left subclavian pacer is in place. There is moderate cardiomegaly. Right basilar opacity has increased. Subtle asymmetric interstitial thickening of the right lung is present. Left lung is clear. IMPRESSION: 1. Increase in right basilar opacity which favors pneumonia. Radiographic follow-up to ensure resolution is recommended. 2. Cardiomegaly. Mild asymmetric right lung interstitial thickening. Mild pulmonary edema cannot be excluded. ACT 112: Negative or not required by law. Electronically signed by: Malik Zaldivar M.D. 07/18/2023 9:19 AM Ordered Studies 07/16/23 12:48 CT angio head w con Stat CT angio neck with con Stat CT head/brain wo con Stat 07/17/23 10:58 CT head/brain wo con Urgent 07/17/23 17:55 MR brain wo con Urgent Hospital Course (1) Respiratory syncytial virus (RSV): (2) Slurred speech: (3) Generalized weakness: (4) Elevated troponin: (5) Hypoxia: Plan Mr. Méndez is an 87-year-old male that presented to the ED today after his family noticed that he was having some slurred speech and altered mental status. Today he fell in the shower and hit his head on the left side. He has been progressively getting weaker and short of breath over the past few days. He has had notable cough.Chest x-ray revealed mild right opacities in the setting of suspected atelectasis. Head CT negative for SDH, ICH or midline shift. Head neck CTA revealed atherosclerosis without aneurysm, stenosis dissection or aortic occlusion. RSV Infection Hypoxia secondary to above Acute metabolic encephalopathy likely secondary to hypoxia--POA DD: CVA --CXR:Cardiomegaly with pulmonary vascular congestion. Mild right basilar opacities favor atelectasis. -- BioFire positive for RSV Elevated procalcitonin Empirically on Rocephin, doxycycline Continue IV Solu-Medrol Flutter valve and incentive spirometry ordered Mental status back to baseline Patient saturating well off supplemental oxygen Strokelike symptoms Rule out CVA --CT head/CTA head and Neck:No acute intracranial abnormality identified. Atherosclerosis without aneurysm, high-grade stenosis, dissection or arterial occlusion identified. --Repeat CT head:There is no hemorrhage, mass effect, or evidence of acute territorial ischemia by CT criteria. -- Brain MRI pending (unsure if compatible with pacemaker) --ECHO: Rhythm is atrial fibrillation with ventricular pacing. Left ventricle is normal in size. Moderate concentric LVH. Apical wall motion abnormality may reflect a pacemaker activation. EF 50 to 55%. Left atrium is severely dilated. Aortic valve sclerosis mild, without significant aortic valvular stenosis. Trace aortic regurgitation. Moderate mitral regurgitation. Moderate tricuspid regurgitation. Interatrial septum is intact with no evidence of ASD. Injection of contrast documented no intra atrial shunt. -- Lipid panel within normal limits. LDL 79. --Continue neurochecks HbA1c, TSH: Normal Start on statin Continue PT OT, speech eval On Eliquis for chronic anticoagulation Appreciate neurology input MRI brain pending Despite explaining the risks and complications of not completing workup and managing appropriately, patient prefers to sign out AGAINST MEDICAL ADVICE. Elevated troponin: Troponin 49.3; repeat 53; continue to trend. Do not suspect ACS or other ischemic demand Likely demand ischemia secondary to hypoxia Echo showed no wall motion abnormality Patient denied any chest pain Atrial Fibrillation: Chronic Takes Eliquis; continue Takes Metoprolol; continue Hematuria In setting of anticoagulation with Eliquis ? UTI Urine culture pending Blood cultures negative to date Urology on board Empirically on Rocephin May need cystoscopy eventually Eliquis held Continues to have hematuria Advised to follow-up with urology Despite explaining the risks and complications of not completing workup and managing appropriately, patient prefers to sign out AGAINST MEDICAL ADVICE. BELÉN on CKD III Unclear baseline Monitor renal function Avoid nephrotoxic agents as able Cr 1.9 today Despite explaining the risks and complications of not completing workup and managing appropriately, patient prefers to sign out AGAINST MEDICAL ADVICE. DVT Px: Eliquis --Held Re: Hematuria Code Status: Full code Disposition AGAINST MEDICAL ADVICE Total Time Total Time Spent Total Time Spent (In Minutes): 56 minutes Discharge Plan Discharge Items Patient Disposition: Against Medical Advice Reason For Visit: WEAKNESS Activity: As commented below Non-emergency contact: Primary Care Provider and Urologist Follow-up/Referrals: Elijah Soni [Primary Care Provider] - Pending Studies at Discharge: Yes Stand-Alone Forms: My [facility] Emtrics, Smoking Cessation Medications and DC Order Prescriptions: New atorvastatin 40 mg Tablet 40 mg PO QAM Qty: 30 0RF doxycycline hyclate 100 mg Capsule 100 mg PO BID Qty: 10 0RF prednisone 20 mg Tablet 20 mg PO DAILY Qty: 3 0RF cefdinir 300 mg capsule 300 mg PO DAILY Qty: 5 0RF Continued potassium chloride 20 mEq tablet,ER particles/crystals 20 meq PO DAILY furosemide 20 mg tablet 20 mg PO DAILY metoprolol succinate 25 mg tablet extended release 24 hr 25 mg PO DAILY Held Eliquis 2.5 mg tablet 0 mg PO BID Hold Instructions: Discuss with PCP/Urology Rx Instructions: Per Pharmacist w/ preferred pharmacy, patient last filled this on 05/20/23 x30 day supply. No discontinue notes from PCP. Original directions: 2.5mg by mouth twice daily Discontinued meloxicam 7.5 mg tablet 7.5 mg PO DAILY Discharge Orders: Left Against Medical Advice (Routine); Ordered 07/18/23 Ordered By: Evans Lofton Admission Data Admit Date/Time: 07/16/23 15:45 Attending Provider: Evans Lofton Admit Provider: Evans Lofton Primary Care Provider: Elijah Soni Other Providers: Evans Lofton; Santiago Zhang; Mateusz Mack; Tobias Molina; Marilyn Rondon; Raz Berrios; Joan Landers; Mary Arguelles; Ronnie Ndiaye; Ira Kimble; Lowell Miner; Matthew Zarco; Elijah Glynn
[2023-07-19] MEDS ORDERED: predniSONE 20 MG TAB PO SCH (09:00)
== END 2023-07-18 13:04 | disposition left against medical advice (07) ==
LOC: ED 13:05 → EDINP 15:45 → INTOOBSV 15:45 → 2E 17:43